=== PATIENT | male | born 1940 | race Caucasian/White ===

== ENCOUNTER → 2016-07-02 | Outpatient (CLI) | payer MEDICARE, OTHER ==
[2016-07-02 13:38] LABS: Blood Urea Nitrogen 8 mg/dL (9-20); Non-African American GFR(MDRD) >60 (>60 ml/min/1.73 sqM)
--- NOTE | 2016-07-02 15:17 | CT ---
EXAMINATION TYPE: CT abdomen pelvis w con DATE OF EXAM: 07/02/2016 3:05 PM COMPARISON: NONE HISTORY: change in bowel habits CT DLP: 1328.7 mGycm CONTRAST: CT scan of the abdomen and pelvis is performed with Oral Contrast and with IV Contrast, patient injec cornell with 100 mL of Omnipaque 300. FINDINGS: LUNG BASES-: No visible nodule. No infiltrate. There is cardiomegaly with coronary artery calcificat ions. LIVER/GB: Moderately severe hepatic steatosis noted. No calcified gallstones. No space occupying he patic lesion. Biliary tree is of normal caliber. PANCREAS: No inflammation. No distinct mass. SPLEEN: No splenic enlargement. No lesion seen. ADRENALS: No nodule. No thickening. KIDNEYS/BLADDER: No hydronephrosis. No nephrolithiasis. Parapelvic renal cysts identified bilatera lly as well as exophytic left renal cyst. Urinary bladder grossly unremarkable. BOWEL: Normal appendix. Normal bowel caliber. No inflammation. GENITAL ORGANS: No gross abnormality. LYMPH NODES: No greater than 1cm abdominal or pelvic lymph nodes are appreciated. AORTA: No significant abnormality. OSSEOUS STRUCTURES: No significant abnormality is seen. OTHER: No significant additional abnormality is seen. IMPRESSION: 1. Hepatic steatosis. 2. Parapelvic and renal cortical cysts.
== END | disposition home or self-care (01) ==
LOC: RADCTMAIN 12:46
PROVIDERS: ATTEND Family Medicine
DX: K76.0 Fatty (change of) liver, not elsewhere classified (principal); N28.1 Cyst of kidney, acquired; R10.9 Unspecified abdominal pain; R19.4 Change in bowel habit
CPT/HCPCS: 82565; 84520; 74177; 36415; Q9967; 87045; 87046; 87324; 87328; 87329; 89055

== ENCOUNTER 2016-07-04 11:33 | Day surgery (SDC) | payer MEDICARE, OTHER ==
[2016-07-03 08:47] VITALS: BMI 28.5
[~2016-07-04 11:33] MED LIST: LACTATED RINGERS 1,000 ML IV SCH
[2016-07-04 12:16] VITALS: RESP 16; TEMP 98.6
[2016-07-04] MEDS ORDERED: LIDOCAINE 1% 20 ML VIAL (10MG/ML) FOR IV START INTRADERMA ONE (12:31)
[2016-07-04] MEDS ORDERED: PROPOFOL 10 MG/ML 20 ML VIAL IV ONE (13:00)
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
--- NOTE | 2016-07-04 13:38 | P.OP ---
Date of Procedure: 07/04/16 Preoperative Diagnosis: Epigastric abdominal pain Screening colonoscopy Postoperative Diagnosis: Antral gastritis Hiatal hernia Esophagitis Left colon polyp Sigmoid colon polyp Diverticulosis Procedure(s) Performed: EGD Colonoscopy Anesthesia: MAC Surgeon: Andrzej Gaston Pathology: other (Left colon polyp, sigmoid colon polyp) Condition: stable Disposition: PACU Description of Procedure: The patient's placed on the endoscopy table in the lateral position. He received IV sedation. The gastroscope some placed oropharynx passed into the esophagus and into the stomach. Scope was then placed through the pylorus. The first and second portion of the duodenum appeared normal. The scope was then brought back and the antrum this appeared mildly inflamed. A biopsies performed. The scope was then retroflexed and there was a moderate size hiatal hernia. The GE junction was at 40 cm. The distal esophagus appeared mildly inflamed. A biopsy was performed. Scope was then back into the proximal esophagus this appeared normal. Scope was withdrawn for patient. Next digital rectal exam was performed which revealed no abnormalities. The prostate was symmetrical without nodules. The flexible colonoscope was then placed patient anus passed throughout the entire colon. The ileocecal valve was visualized. The cecum, ascending and transverse colon appeared normal. In the left colon there was a small polyp sees remove his the forcep. Scope summer back and another polyp was seen in the sigmoid colon and this was removed the forcep as well. There was extensive diverticular changes seen in the sigmoid colon. Scope summer back the rectum and this appeared normal. Scope was withdrawn for patient.
[2016-07-04 13:51] VITALS: BP 136/81; PULSE 71
== END 2016-07-04 14:10 | disposition home or self-care (01) ==
LOC: ORWHC2ENDO 11:33
PROVIDERS: ATTEND Surgery
DX: Z12.11 Encounter for screening for malignant neoplasm of colon (principal); K29.50 Unspecified chronic gastritis without bleeding; K44.9 Diaphragmatic hernia without obstruction or gangrene; K21.0 Gastro-esophageal reflux disease with esophagitis; D12.4 Benign neoplasm of descending colon; D12.5 Benign neoplasm of sigmoid colon; K57.30 Diverticulosis of large intestine without perforation or abscess without bleeding; R19.4 Change in bowel habit; E78.5 Hyperlipidemia, unspecified; I10 Essential (primary) hypertension; I25.10 Atherosclerotic heart disease of native coronary artery without angina pectoris; E07.9 Disorder of thyroid, unspecified; F32.9 Major depressive disorder, single episode, unspecified; I25.2 Old myocardial infarction; Z95.1 Presence of aortocoronary bypass graft; Z79.02 Long term (current) use of antithrombotics/antiplatelets; Z79.899 Other long term (current) drug therapy; Z88.1 Allergy status to other antibiotic agents; Z88.5 Allergy status to narcotic agent; Z88.8 Allergy status to other drugs, medicaments and biological substances; Z87.891 Personal history of nicotine dependence
CPT/HCPCS: 88305; 88342; 43239; J2704; G0121; 44389

== ENCOUNTER 2017-10-06 06:22 | Day surgery (SDC) | payer MEDICARE, OTHER ==
[2017-09-30 15:51] VITALS: BMI 28.3
[2017-10-06 07:03] VITALS: TEMP 98.5
[2017-10-06 07:07] LABS: Glucose,Whole Blood 114 mg/dL (75-99)
[2017-10-06] MEDS: LACTATED RINGERS 1,000 ML IV SCH ×2 (07:07→07:44)
[2017-10-06] MEDS ORDERED: PROPOFOL 10 MG/ML 20 ML VIAL IV ONE (07:45)
[2017-10-06] MEDS ORDERED: LIDOCAINE 1% INJ 10MG/ML (20 ML MDV) ONE (07:45)
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
--- NOTE | 2017-10-06 08:10 | P.OP ---
Date of Procedure: 10/06/17 Preoperative Diagnosis: History of colon polyps Postoperative Diagnosis: Left colon polyp Procedure(s) Performed: Colonoscopy Anesthesia: MAC Surgeon: Andrzej Gaston Pathology: other (Left colon polyp) Condition: stable Disposition: PACU Description of Procedure: The patient's placed on the endoscopy table in the lateral position. He received IV sedation. Digital rectal exam was performed which revealed internal hemorrhoids. The prostate was symmetrical without nodules. The flexible colonoscope was then placed patient anus and passed throughout the entire colon. The ileocecal valve was visualized. The cecum, ascending and transverse colon appeared normal. In the descending colon was a few scattered diverticuli. In the left colon at 45 cm saw there was a small polyp seen this removed with a forcep. Scope was brought back into the sigmoid colon and a few diverticula were seen. Scope was brought back the rectum and this appeared normal. Scope was withdrawn from patient.
[2017-10-06] MEDS ORDERED: IV FLUID CONTINUATION 1,000 ML IV ONE (08:11)
[2017-10-06 08:13] VITALS: RESP 18
[2017-10-06 08:25] VITALS: BP 168/78; PULSE 74
--- NOTE | 2017-10-08 08:19 | CDI ---
Date: 10/08/17 CDS/Technology Sales Consultant Name: Arin downing Phone: If any questions, call Cherie Johnson Surg Tech at [phone] Patient Name: Anoop Mart Admit Date: 10/06/17 Discharge Date: 10/06/17 ATTENTION: The [facility] Coding Staff appreciate your assistance in clarifying documentation. Please respond to the clarification below the line at the bottom and electronically sign. The [facility] Coding staff will review the response and follow-up if needed. Please note: Queries are made part of the Legal Health Record. If you have any questions, please contact the Surg Tech. Dear Dr. Gaston, Please provide clarification on the method used to remove the left colon polyp. Please clarify if the method was hot or cold forceps. Thank you for your kind consideration ___ The polyp was removed with the cold forcep MTDD
== END 2017-10-06 08:51 | disposition home or self-care (01) ==
LOC: ORWHC2ENDO 06:22
PROVIDERS: ATTEND Surgery
DX: Z12.11 Encounter for screening for malignant neoplasm of colon (principal); K63.5 Polyp of colon; K57.30 Diverticulosis of large intestine without perforation or abscess without bleeding; Z86.010 Personal history of colon polyps; K64.8 Other hemorrhoids; K21.9 Gastro-esophageal reflux disease without esophagitis; E78.5 Hyperlipidemia, unspecified; I10 Essential (primary) hypertension; I25.2 Old myocardial infarction; E07.9 Disorder of thyroid, unspecified; Z95.1 Presence of aortocoronary bypass graft; M10.9 Gout, unspecified; Z89.021 Acquired absence of right finger(s); Z87.891 Personal history of nicotine dependence; Z79.02 Long term (current) use of antithrombotics/antiplatelets; Z79.82 Long term (current) use of aspirin; Z79.890 Hormone replacement therapy; Z79.899 Other long term (current) drug therapy; Z88.1 Allergy status to other antibiotic agents; Z88.5 Allergy status to narcotic agent; Z88.8 Allergy status to other drugs, medicaments and biological substances
CPT/HCPCS: 88305; 45380; J2001; J2704; 44389

== ENCOUNTER → 2018-01-09 | Outpatient (CLI) | payer MEDICARE, OTHER ==
--- NOTE | 2018-01-10 12:00 | MR ---
EXAMINATION TYPE: MR lumbar spine wo con DATE OF EXAM: 01/09/2018 1:57 PM COMPARISON: NONE HISTORY: Deg disc disease / Radiculopathy Multiplanar, MultiSpin echo imaging of the lumbar spine was performed. L1-L2: Normal disc appearance without desiccation. No herniation, protrusion or disc bulging. No ca nal stenosis is present. Foramina are patent bilaterally. L2-L3: Moderate degenerative disc space narrowing. Posterior disc bulge. No evidence of herniation pr otrusion or central stenosis. Lamina are patent bilaterally. L3-L4: Moderate degenerative disc space narrowing. Posterior disc bulge. No evidence of herniation pr otrusion or central stenosis. Lamina are patent bilaterally. L4-L5: Moderate disc desiccation. Posterocentral disc protrusion effaces the ventral thecal sac. Bila teral lateral recess stenosis right greater than left. No significant foraminal encroachment. No cent ral stenosis. L5-S1: Moderate degenerative disc space narrowing. Posterior disc bulge. No evidence of herniation pr otrusion or central stenosis. Lamina are patent bilaterally. Lumbar segments are intact. Ventral spondylosis. No paraspinal masses are identified. Conus medulla ris has a normal appearance. IMPRESSION: 1. Bilevel degenerative disc disease. 2. Posterocentral disc protrusion L4-5 with bilateral lateral recess stenosis.
== END | disposition home or self-care (01) ==
LOC: RADMRIMAIN 13:07
PROVIDERS: ATTEND Family Medicine
DX: M48.061 Spinal stenosis, lumbar region without neurogenic claudication (principal); M51.16 Intervertebral disc disorders with radiculopathy, lumbar region
CPT/HCPCS: 72148

== ENCOUNTER → 2018-06-28 | Outpatient (CLI) | payer MEDICARE, OTHER ==
--- NOTE | 2018-06-28 13:57 | CT ---
EXAMINATION TYPE: CT abdomen pelvis wo con DATE OF EXAM: 06/28/2018 COMPARISON: 07/02/2016 HISTORY: Abdominal pain, history of diverticulitis. CT DLP: 593.8 mGycm Automated exposure control for dose reduction was used. TECHNIQUE: Helical acquisition of images was performed from the lung bases through the pelvis. FINDINGS: LUNG BASES: Subsegmental changes at the lung bases most typical of atelectasis. Degree of underlying COPD suspected. There appears to be cardiomegaly with pericardial lipomatosis. Surgical clip noted in the mediastinum and there are sternotomy wires. Correlate for gynecomastia. LIVER/GB: Liver reduced in attenuation correlate for hepatic steatosis. There does appear to be a tin y calcification within the left lobe the liver measuring 1 mm an additional right lobe 2 mm calcifica tion compatible with granuloma. PANCREAS: No significant abnormality is seen. SPLEEN: No significant abnormality is seen. ADRENALS: No significant abnormality is seen. KIDNEYS: No hydronephrosis. Hypodense lesion involving the midpole left kidney is stable likely relat ed to simple cyst. Additional parapelvic renal cysts are suspected. No hydronephrosis or nephrolithia sis. ADENOPATHY: None visualized. OSSEOUS STRUCTURES: Hypertrophic and degenerative change of the vertebral column. Atherosclerotic ch latisha of the aorta. There stable benign-appearing cystic lesions involving the acetabulum. There appea rs to be a less well-defined area of abnormal density involving the left femoral neck. This does not appear to be cystic in nature. Possibly related to bone infarct. Chondroid lesion or other bone neopl asm not excluded recommend bone scan. BOWEL: No significant abnormality is seen. OTHER: No evidence of aortic aneurysm. Atherosclerotic changes are seen. No free air or free fluid. IMPRESSION: 1. Hepatic steatosis. 2. Pericardial lipomatosis. 3. Stable appearing renal lesions which are nonspecific by noncontrast technique but likely in the ba sis of simple cysts. 3. Diverticulosis but no CT evidence of diverticulitis 4. The bladder is decompressed and limited in assessment. 5. Intraosseous lesion of the left femoral neck does not appear to be compatible with a simple bone c yst. Recommend bone scan or MRI for further evaluation. Favor a bone infarct.
== END | disposition home or self-care (01) ==
LOC: RADCTMAIN 12:48
PROVIDERS: ATTEND Family Medicine
DX: K57.30 Diverticulosis of large intestine without perforation or abscess without bleeding (principal); K76.0 Fatty (change of) liver, not elsewhere classified; N32.89 Other specified disorders of bladder; N28.9 Disorder of kidney and ureter, unspecified; Z87.19 Personal history of other diseases of the digestive system
CPT/HCPCS: 74176

== ENCOUNTER → 2018-07-06 | Outpatient (CLI) | payer MEDICARE, OTHER ==
--- NOTE | 2018-07-06 17:23 | MR ---
EXAMINATION TYPE: MR hip LT wo con DATE OF EXAM: 07/06/2018 COMPARISON: None HISTORY: 78-year-old male with left hip pain x 2 years Technique: Multiplanar, multisequence images of the left hip were acquired without IV contrast. FINDINGS: 3.7 cm serpiginous area of mixed-signal intensity within the left femoral neck. No marrow edema. Degenerative change in both hips. There is a 2.3 cm subchondral geode along the anterior acetabular r mohamud on the right. Irregular cartilage loss along the weightbearing aspect of both hips with lateral m arginal spurring and small bilateral joint effusions. Degenerative changes are more extensive at the right hip with subchondral marrow signal changes on both sides of the joint. The rectus femoris and hamstrings origins are intact. 2.4 cm long by 1.1 cm wide distention of the left iliopsoas bursa. Trace fluid tracking along the rig ht iliopsoas bursa. There is a partial tear at the insertion of both the lateral gluteus medius and gluteus minimus tendo ns at the left greater trochanter. Additional intrasubstance tear at the insertion of the left associate professor of psychology osuperior gluteus medius. Sacrum and SI joints appear intact as does the pubic symphysis. No suspicious bone marrow replacement. Normal course, caliber, and signal intensity of the sciatic nerves. IMPRESSION: 1. Moderate to advanced right hip OA and at least moderate left hip OA. Radiographs may be helpful to better assess. Associated small joint effusions. 2. 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 No acute bony edema. 3. Tendinosis and partial tears of the left gluteal insertions onto the greater trochanter. No retrac cornell tear. 4. Mild, 2.4 x 1.1 cm distention of the left iliopsoas bursa.
== END ==
LOC: RADMRIMAIN 12:56
PROVIDERS: ATTEND Family Medicine
DX: M16.0 Bilateral primary osteoarthritis of hip (principal); M76.02 Gluteal tendinitis, left hip; M25.852 Other specified joint disorders, left hip

== ENCOUNTER → 2018-11-19 | Outpatient (CLI) | payer MEDICARE, OTHER | END | disposition home or self-care (01) | LOC: LABPAT 12:47 | PROVIDERS: ATTEND Orthopaedic Surgery | DX: Z01.812 Encounter for preprocedural laboratory examination (principal); M16.11 Unilateral primary osteoarthritis, right hip | CPT/HCPCS: 86850; 86900; 86901; 87070 ==

== ENCOUNTER → 2018-11-19 | Outpatient (CLI) | payer MEDICARE, OTHER ==
[2018-11-19 13:44] LABS: Partial Thromboplastin Time 28.9 sec (22.0-30.0); Prothrombin Time 10.4 sec (9.0-12.0)
[2018-11-19 15:45] LABS: HGB 16.3 gm/dL (13.0-17.5); MCH 32.7 pg (25.0-35.0); MCHC 34.7 g/dL (31.0-37.0); MCV 94.3 fL (80.0-100.0); Mean Platelet Volume 7.5; Platelet Count 208 k/uL (150-450); RBC 4.98 m/uL (4.30-5.90); RDW 13.9 % (11.5-15.5); WBC 10.2 k/uL (3.8-10.6)
[2018-11-19 18:45] LABS: African American GFR (CKD) 83.2 (60.0-200.0); Albumin 4.8 g/dL (3.80-4.90); Albumin/Globulin Ratio 2.4 (1.60-3.17); Anion Gap 12.3 mmol/L (4.00-12.00); Calcium 9.7 mg/dL (8.7-10.3); Carbon Dioxide 28.7 mmol/L (21.6-31.8); Potassium 3.3 mmol/L (3.5-5.5); Total Bilirubin 1.5 mg/dL (0.3-1.2); Total Protein 6.8 g/dL (6.2-8.2)
== END | disposition home or self-care (01) ==
LOC: LABWHC1 12:51
PROVIDERS: ATTEND Physician Assistant Medical
DX: Z01.812 Encounter for preprocedural laboratory examination (principal)
CPT/HCPCS: 36415; 80053; 85027; 85610; 85730

== ENCOUNTER 2018-11-29 08:46 | Inpatient (IN) | payer MEDICARE, OTHER ==
[2018-11-22 16:13] VITALS: BMI 27.4
--- NOTE | 2018-11-28 09:18 | HP ---
HISTORY AND PHYSICAL REASON FOR ADMISSION: Surgery scheduled for 11/29/2018 HISTORY OF PRESENT ILLNESS: Anoop Mart is a 78-year-old patient seen with symptomatic right hip osteoarthritis. After treatment options were discussed, the patient elected to proceed with right total hip arthroplasty via direct anterior approach. Consent regarding the procedure was obtained. Medical clearance was provided by Dr. Riojas. PAST MEDICAL HISTORY: Hypertension, hyperlipidemia, hypothyroidism. PAST SURGICAL HISTORY: Foot surgery, shoulder surgery. MEDICATIONS: Allopurinol, amlodipine, Crestor, levothyroxine, metoprolol. ALLERGIES: MORPHINE SULFATE, ZITHROMAX, LISINOPRIL. SOCIAL HISTORY: Denies tobacco use. PHYSICAL EXAMINATION: Evaluation of the right hip: There is very limited range of motion with severe pain, diffuse tenderness. Positive hip impingement sign. Straight leg raise is negative. His distal neurovascular exam is intact. RADIOGRAPHS: Radiographs of the right hip reveals severe osteoarthritic changes. IMPRESSION: 1. Right hip osteoarthritis. 2. Hypertension. 3. Hyperlipidemia. 4. Hypothyroidism. PLAN: Direct anterior right total hip arthroplasty. Surgery 11/29/2018. MMODL / IJN: [id number] /
[~2018-11-29 08:46] MED LIST changes: +ACETAMINOPHEN TAB 500 MG TAB PO ONE; -LACTATED RINGERS 1,000 ML IV SCH; +LIDOCAINE 1% 20 ML VIAL (10MG/ML) FOR IV START INTRADERMA PRN; +MELOXICAM 7.5 MG TAB PO ONE; +ONDANSETRON 4 MG/2 ML VIAL IVP ONE; +ROPIVACAINE 246.25 MG, EPINEPHrine 0.5 MG, KETOROLAC 30 MG, cloNIDine HCL/PF 80 MCG, WA... MISCELLANE ONE; +TRANEXAMIC ACID 1,000 MG in SODIUM CHLORIDE 0.9% 100 ML IVPB ONE; +fentaNYL (PF) 50 MCG/ML 2 ML AMP IV PRN
[2018-11-29] MEDS: LACTATED RINGERS 1,000 ML IV SCH (09:50)
[2018-11-29 09:56] LABS: Calcium 9.5 mg/dL (8.4-10.2); Potassium 3.1 mmol/L (3.5-5.1)
[2018-11-29] MEDS ORDERED: DEXAMETHASONE SOD PHOS (MDV) 100 MG/10 ML VIAL IVP ONE (10:00)
[2018-11-29] MEDS ORDERED: TRANEXAMIC ACID 1,000 MG/10 ML VIAL ONE (10:35)
[2018-11-29] MEDS ORDERED: fentaNYL (PF) 50 MCG/ML 2 ML AMP ONE (10:35)
[2018-11-29] MEDS ORDERED: PROPOFOL 10 MG/ML 20 ML VIAL IV ONE (10:35)
[2018-11-29] MEDS ORDERED: SODIUM CHLORIDE 0.9% 100 ML BAG ONE (10:35)
[2018-11-29] MEDS ORDERED: MIDAZOLAM 2 MG/2 ML VIAL ONE (10:35)
[2018-11-29] MEDS ORDERED: PHENYLEPHRINE-0.9% NACL SYG 1 MG/10 ML SYRINGE ONE (10:35)
[2018-11-29] MEDS ORDERED: ceFAZolin 3,000 MG in SODIUM CHLORIDE 0.9% IRRIGATIO 3,000 ML IRRIGATION ONE (11:10)
--- NOTE | 2018-11-29 12:28 | P.OP ---
Date of Procedure: 11/29/18 Preoperative Diagnosis: Right hip osteoarthritis Postoperative Diagnosis: Right hip osteoarthritis Procedure(s) Performed: Direct anterior right total hip arthroplasty Implants: 1. Glory GARCIA chose size 14 high offset press-fit femoral stem 2. Glory pinnacle 58 mm multiple hole press-fit acetabular shell 3. Glory [place] +4 neutral 36 mm ID 58 mm OD polyethylene acetabular liner 4. Biolox delta ceramic femoral head +12 36 mm Anesthesia: local, spinal Surgeon: Mike Alex [employer] Printer #1: Malik Rivas Estimated Blood Loss (ml): 200 Pathology: other (Femoral head) Condition: stable Disposition: PACU Indications for Procedure: 78-year-old patient seen with symptomatic right hip osteoarthritis. After treatment options were discussed, he elected to proceed with total hip arthroplasty. Operative Findings: See description of procedure Description of Procedure: The patient was taken to the operative suite. Patient underwent a spinal anesthetic by the department of anesthesia. Patient was then transferred to the [place] table. Patient was given preoperative IV antibiotics and TXA. Both lower extremities were placed in standard leg spars. The hip was then prepped and draped in the normal sterile orthopedic fashion. A standard anterior incision was made beginning 3 cm lateral and 1 cm distal to the ASIS extending 10 cm. Dissection was then carried down through the subcutaneous soft tissues down to the fascia overlying the tensor fascia hira. An incision was now made through the fascia. Careful dissection was taken down exposing the tensor fascia hira muscle. A Cobra retractor was now placed along the medial femoral neck and a second one along the lateral femoral neck. The venous circumflex vessels were now identified, cauterized and clipped. We identified the anterior hip capsule. An incision was made through the hip capsule along the lateral border. I performed a partial anterior capsulectomy. Retractors were now placed around the femoral neck itself. A femoral neck cut was now made with a sagittal saw. It was completed with an osteotome at the lateral neck area. The femoral head was now removed without difficulty. The extremity was now rotated to 45 of external rotation. It was locked in position. Residual labrum was now debrided out. Serial reaming was performed of the acetabulum while Carson VARNER ass isted holding an anterior retractor for exposure. Once we reached the appropriate size and a trial was position and fit nicely. The appropriate size was now chosen opened and made available. It was introduced into the acetabulum without difficulty. The C-arm/fluoroscopy was now brought into the operative field. We made sure we had a true AP pelvic view. We now under direct C- arm/fluoroscopy introduced into the acetabular component with appropriate version and inclination. I held the cup in appropriate position well Carson VARNER used a mallet to seat the acetabular component. I noted the component now to be well seated and stable. Acetabular cup introduce her was removed. The C-arm was pulled back. An appropriate liner was introduced and clicked into position. It was felt to be stable. At this point retractors were removed. The extremity was now placed into 120 external rotation with no traction. The leg was now dropped to the ground and adducted. Appropriate retractors were now positioned along the proximal femur. We also placed our femoral look into position. Additional capsular releasing was performed to gain access to the proximal femur. We now used a box osteotome. A canal finder was now utilized. Serial broaching was now performed with the assistance of Carson VARNER tapping the broaches down with a mallet while held the broach in appropriate rotation and position. This was done until we reached the appropriate size with good overall rotational stability. Appropriate calcar planing was performed. A trial head/neck was placed into position. The hip was now reduced. The C- arm/fluoroscopy was brought back into the operative field. A spot film was obtained of the nonoperative hip. A spot film was obtained of the trial components. Overlays were performed, we noted good overall alignment and positioning for determining leg length. The C-arm/fluoroscopy was pulled back. Retractors were repositioned and the hip was dislocated. The leg was again taken down to the ground and adducted. Appropriate retractors were repositioned as well as the femoral hook. All trial components were removed. The femoral implant was opened along with the femoral head. The femoral implant was introduced on the appropriate handle into our pre-broached area. I held the component position well Carson VARNER used a mallet to seat the femoral compo nent. The femoral component was now noted to be well seated and stable.. The femoral head was introduced with good positioning and fixation noted. Retractors were now removed. The hip was now reduced. There appeared be good positioning of the hip confirmed on intraoperative fluoroscopy. Spot films were obtained to document this. A second gram of TXA was given. The deep and superficial soft tissues were infiltrated with local analgesic. Bipolar cautery had been utilized intermittently through the procedure for hemostasis. The wound was irrigated copiously with pulse lavage mechanical irrigation. The fascia was repaired with Vicryl suture. The subcutaneous soft tissues were repaired in layers with Vicryl suture. The skin was approximated with pernio/Dermabond. Sterile dressings were applied. Patient was then awakened, transferred to a bed and taken to recovery in stable condition. Carson VARNER assisted with the complex procedure.
[2018-11-29] MEDS ORDERED: HYDROmorphone 0.5 MG/0.5 ML SYRINGE IVP PRN ×2 (12:29)
[2018-11-29] MEDS ORDERED: NALOXONE 0.4 MG/ML 1 ML VIAL IV PRN (12:29)
[2018-11-29] MEDS ORDERED: ONDANSETRON 4 MG/2 ML VIAL IVP PRN (12:29)
[2018-11-29] MEDS ORDERED: HYDROcodone/APAP 7.5-325MG 1 EACH TAB PO PRN (12:29)
--- NOTE | 2018-11-29 12:59 | FL ---
EXAMINATION TYPE: FL guidance operating room DATE OF EXAM: 11/29/2018 CLINICAL HISTORY: Fluoroscopic documentation during a right hip arthroplasty TECHNIQUE: Fluoroscopy. COMPARISON: None. FINDINGS: Fluoroscopic guidance was provided during procedure performed by Dr. Alex. A total o f 29 seconds of fluoroscopic time was utilized during the procedure and 1 spot image was acquired dur ing a right hip arthroplasty. IMPRESSION: As Above.
[2018-11-29] MEDS: SODIUM CHLORIDE 0.9% 1,000 ML IV SCH (14:35)
[2018-11-29] MEDS: HYDROcodone/APAP 7.5-325MG 1 EACH TAB PO PRN ×2 (14:52→21:28)
[2018-11-29] MEDS: NICOTINE 21MG/24HR PATCH TRANSDERM SCH (14:57)
[2018-11-29] MEDS: HYDROmorphone 0.5 MG/0.5 ML SYRINGE IVP PRN ×2 (15:07→21:29)
[2018-11-29] MEDS ORDERED: SENNOSIDES-DOCUSATE SODIUM 1 EACH TAB PO SCH (21:00)
[2018-11-29] MEDS: POTASSIUM CHLORIDE ER 10 MEQ TAB.ER.PRT PO SCH (21:20)
[2018-11-30] MEDS: SODIUM CHLORIDE 0.9% 1,000 ML IV SCH (00:55)
[2018-11-30] MEDS: LACTATED RINGERS 1,000 ML IV SCH (05:44)
[2018-11-30] MEDS: HYDROcodone/APAP 7.5-325MG 1 EACH TAB PO PRN ×2 (05:48→12:20)
[2018-11-30] MEDS ORDERED: LEVOTHYROXINE 50 MCG TAB PO SCH (06:30)
[2018-11-30 06:43] LABS: Basophils # (A) 0.1 k/uL (0-0.2); Basophils % (A) 1 %; Eosinophils % (A) 0 %; HCT 33.6 % (39.0-53.0); Lymphocytes % (A) 7 %; MCH 33.4 pg (25.0-35.0); MCHC 36.8 g/dL (31.0-37.0); MCV 90.6 fL (80.0-100.0); Mean Platelet Volume 6.8; Monocytes # (A) 0.8 k/uL (0-1.0); Monocytes % (A) 5 %; Neutrophils # (A) 12.8 k/uL (1.3-7.7); Neutrophils % (A) 86 %; Platelet Count 154 k/uL (150-450); RDW 13.5 % (11.5-15.5); WBC 14.8 k/uL (3.8-10.6)
[2018-11-30 06:47] LABS: HGB 12.4 gm/dL (13.0-17.5)
[2018-11-30 08:04] VITALS: BP 160/60; PULSE 76; RESP 16; TEMP 98
[2018-11-30 08:55] LABS: ALT 42 U/L (21-72); AST 64 U/L (17-59); African American GFR (CKD) >90 (>60 ml/min/1.73 sqM); Albumin 3.6 g/dL (3.5-5.0); Alkaline Phosphatase 86 U/L (38-126); Anion Gap 10 mmol/L; Blood Urea Nitrogen 12 mg/dL (9-20); Calcium 8.9 mg/dL (8.4-10.2); Carbon Dioxide 27 mmol/L (22-30); Chloride 97 mmol/L (98-107); Glucose 121 mg/dL (74-99); Potassium 3.2 mmol/L (3.5-5.1); Sodium 134 mmol/L (137-145); Total Bilirubin 0.9 mg/dL (0.2-1.3)
[2018-11-30] MEDS ORDERED: ALLOPURINOL 100 MG TAB PO SCH (09:00)
[2018-11-30] MEDS ORDERED: CITALOPRAM HYDROBROMIDE 10 MG TAB PO SCH (09:00)
[2018-11-30] MEDS ORDERED: MELOXICAM 7.5 MG TAB PO SCH (09:00)
[2018-11-30] MEDS ORDERED: ENOXAPARIN 40 MG/0.4 ML SYRINGE SQ SCH (09:00)
[2018-11-30] MEDS ORDERED: CLOPIDOGREL 75 MG TAB PO SCH (09:00)
[2018-11-30] MEDS ORDERED: METOPROLOL TARTRATE 25 MG TAB PO SCH (09:00)
[2018-11-30] MEDS ORDERED: amLODIPine 10 MG TAB PO SCH (09:00)
[2018-11-30] MEDS: POTASSIUM CHLORIDE ER 10 MEQ TAB.ER.PRT PO SCH (09:12)
[2018-11-30] MEDS: NICOTINE 21MG/24HR PATCH TRANSDERM SCH (09:12)
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
--- NOTE | 2018-11-30 11:10 | P.PN ---
Subjective Progress Note Date: 11/30/18 Principal diagnosis: Status post direct anterior right total hip arthroplasty Patient evaluated at bedside. His resting comfortably, pain is well-controlled. Denies any chest pain shortness of breath. Has done very well with physical therapy. Objective - Vital Signs Vital signs: Vital Signs Temp 98.0 F 11/30/18 07:35 Pulse 76 11/30/18 07:35 Resp 16 11/30/18 07:35 BP 160/60 11/30/18 07:35 Pulse Ox 97 11/30/18 07:35 Intake & Output 11/29/18 11/30/18 11/30/18 18:59 06:59 18:59 Intake Total 2351 250 350 Output Total 500 75 Balance 1851 175 350 Weight 83.461 kg Intake: IV 751 Intake, IV Titration 400 Amount Lactated Ringers 1,000 ml 400 @ 20 mls/hr IV .Q24H JUAN Rx#:[id number] Oral 1200 250 350 Output: Urine 300 Emesis 75 Estimated Blood Loss 200 Other: Voiding Method Toilet Toilet # Voids 1 1 - Exam Right lower extremity: Incision is clean, dry, and intact. The exofin fusion tape is in good condition. There is minimal soft tissue swelling and ecchymosis surrounding the medial and lateral aspects of the incision. Calf is soft, no tenderness with palpation. Plantar flexion, dorsiflexion, EHL, FHL are intact. Sensory exam to light touch throughout the extremity is intact, dorsal pedis pulses 2+. - Labs CBC & Chem 7: 11/30/18 05:59 11/30/18 05:59 Labs: Abnormal Lab Results - Last 24 Hours (Table) 11/30/18 11/30/18 Range/Units 05:59 05:59 WBC 14.8 H (3.8-10.6) k/uL RBC 3.70 L (4.30-5.90) m/uL Hgb 12.4 L D (13.0-17.5) gm/dL Hct 33.6 L (39.0-53.0) % Neutrophils # 12.8 H (1.3-7.7) k/uL Sodium 134 L (137-145) mmol/L Potassium 3.2 L (3.5-5.1) mmol/L Chloride 97 L (98-107) mmol/L Glucose 121 H (74-99) mg/dL AST 64 H (17-59) U/L Total Protein 6.0 L (6.3-8.2) g/dL Assessment and Plan Plan: Assessment: Postop day #1 status post direct anterior right total hip arthroplasty Plan: Pain control, we'll discharge home on oral medication GI and DVT prophylaxis, resume medication Wound care instructions were discussed Home physical therapy and nursing Medical recommendations Plan for discharge today Time with Patient: Less than 30
--- NOTE | 2018-11-30 11:13 | P.DS ---
Providers Date of admission: 11/29/18 08:46 Expected date of discharge: 11/30/18 Attending physician: Mike Alex Consults: 11/29/18 12:29 Consult Physician Routine Consulting Provider: Noel Riojas Consult Reason/Comments: Medical management Do you want consulting provider notified?: Yes Primary care physician: Danielle Braun Hospital Course: Date of admission: 11/29/2018 Date of discharge: 11/30/2018 Admission diagnosis: Status post direct anterior right total hip arthroplasty Discharge diagnosis: Same Attending physician: Dr. Alex Surgical procedures: Direct anterior right total hip arthroplasty Brief history: Patient is a 78-year-old male with a history of progressive primary right hip osteoarthritis. At this point patient has failed conservative treatment measures and has opted to proceed with a elective right total hip arthroplasty. Hospital course: Details of patient's surgery can be found in operative report. Patient tolerated the procedure well and was subsequently transported to orthopedic floor. Patient's orthopeidc and medical care was provided daily. Patient had daily laboratory tests performed for evaluation of overall blood counts. Patient had daily physical therapy to include strengthening range of motion as well as education with walker ambulation. Patient was treated with Lovenox for their postoperative DVT prophylaxis during their inpatient stay. Patient was noted to have a relatively uneventful postoperative course. Patient reported satisfactory pain control with oral pain medications by postoperative day 0. Patient showed satisfactory progress with physical therapy. Patient moved steadily through the program and had no difficulty meeting the goals by postoperative day 1. Given patient's otherwise satisfactory course and having met physical therapy goals, plan is to discharge patient home on postoperative day 1. Discharge condition/disposition: Patient will be discharged home in stable condition. Discharge medications: Instructions are given on resumption of patient's normal daily medications per primary care recommendation, in addition patient will be prescribed Tina 7.5 mg/325 mg, Colace 100 mg. Discharge instructions: 1. Wound care and infection precautions, keep incision dry and covered while showering, no lotions, creams, moisturizers. No soaking, tubs, pools, hottubs. Do not scrub over the incision. 2. Weight-bear as tolerated with walker / cane until follow-up. 3. Ice and elevate when necessary. Do not exceed 20 minutes per hour with ice pack. 4. Utilize compression sleeve until seen at first follow up appointment. 5. Visiting nursing care. 6. Home physical therapy. 7. Pain meds and anticoagulants per prescription. 8. Pain medication has potential to cause constipation. Increase oral fluid and fiber intake. Contact primary care provider if you have not had a bowel movement within 48 hours after discharge 9. No anti-inflammatory medication until discussed at first post operative visit, this including Motrin, Aleve, Mobic, Diclofenac. 10. Follow up in office at 2 weeks postop with Carson Rivas PA-C 11. Follow up with your primary care doctor 7-10 days after discharge. 12. Contact [facility] with any questions, . Procedures: Direct anterior right total hip arthroplasty Patient Condition at Discharge: Good Plan - Discharge Summary Discharge Rx Participant: No New Discharge Prescriptions: New Potassium Chloride 10 meq PO DAILY #30 capsule.er Docusate [Colace] 100 mg PO DAILY #30 capsule HYDROcodone/APAP 7.5-325MG [Tina 7.5] 1 - 2 each PO Q6HR PRN #56 tab PRN Reason: Pain No Action Clopidogrel [Plavix] 75 mg PO DAILY Rosuvastatin Calcium [Crestor] 20 mg PO SUMOWEFR Levothyroxine Sodium [Synthroid] 50 mcg PO DAILY Citalopram Hydrobromide [CeleXA] 10 mg PO DAILY Cholecalciferol [Vitamin D3] 2,000 unit PO DAILY Allopurinol [Zyloprim] 100 mg PO BID Aspirin EC [Ecotrin] 325 mg PO DAILY amLODIPine BESYLATE [Norvasc] 10 mg PO DAILY Metoprolol Tartrate [Lopressor] 25 mg PO DAILY Acetaminophen [Tylenol Arthritis] 650 mg PO DIRECTED PRN PRN Reason: Pain Vitamin B-12 (No Dose) 1 tab PO DAILY Lidocaine 5% Oint [Xylocaine 5% Oint] 1 applic TOPICAL DIRECTED PRN PRN Reason: Pain Blue Emu (Otc) 1 applic TOPICAL DIRECTED PRN PRN Reason: Pain Discharge Medication List Allopurinol [Zyloprim] 100 mg PO BID 07/03/16 [History] Aspirin EC [Ecotrin] 325 mg PO DAILY 07/03/16 [History] Cholecalciferol [Vitamin D3] 2,000 unit PO DAILY 07/03/16 [History] Citalopram Hydrobromide [CeleXA] 10 mg PO DAILY 07/03/16 [History] Clopidogrel [Plavix] 75 mg PO DAILY 07/03/16 [History] Levothyroxine Sodium [Synthroid] 50 mcg PO DAILY 07/03/16 [History] Rosuvastatin Calcium [Crestor] 20 mg PO SUMOWEFR 07/03/16 [History] amLODIPine BESYLATE [Norvasc] 10 mg PO DAILY 07/03/16 [History] Metoprolol Tartrate [Lopressor] 25 mg PO DAILY 07/04/16 [History] Acetaminophen [Tylenol Arthritis] 650 mg PO DIRECTED PRN 11/22/18 [History] Blue Emu (Otc) 1 applic TOPICAL DIRECTED PRN 11/22/18 [History] Lidocaine 5% Oint [Xylocaine 5% Oint] 1 applic TOPICAL DIRECTED PRN 11/22/18 [History] Vitamin B-12 (No Dose) 1 tab PO DAILY 11/22/18 [History] Docusate [Colace] 100 mg PO DAILY #30 capsule 11/30/18 [Rx] HYDROcodone/APAP 7.5-325MG [Tina 7.5] 1 - 2 each PO Q6HR PRN #56 tab 11/30/18 [Rx] Potassium Chloride 10 meq PO DAILY #30 capsule.er 11/30/18 [Rx] Follow up Appointment(s)/Referral(s): Malik Rivas PAC [PHYSICIAN [employer]ANCE [employer]ER] - 12/15/18 2:20 pm Danielle Braun DO [Primary Care Provider] - 12/07/18 1:30 pm (with Marcia) Activity/Diet/Wound Care/Special Instructions: Orthopedic Discharge Instructions: 1. Wound care and infection precautions, keep incision dry and covered while showering, no lotions, creams, moisturizers. No soaking, pools, hot tubs. Do not scrub over incision. 2. Weight-bear as tolerated with walker / cane until follow-up. 3. Ice and elevate when necessary. Do not exceed 20 minutes per hour with ice pack. 4. Utilize compression sleeve until seen at first follow up appointment. 5. Pain meds and anticoagulants per prescription. 6. Pain medication has potential to cause constipation. Increase oral fluid and fiber intake. Contact primary care provider if you have not had a bowel movement within 48 hours after discharge. 7. No anti-inflammatory medication until discussed at first post operative visit, this including Motrin, Aleve, Mobic, Diclofenac. 8. Follow up in office at 2 weeks postop with Carson Rivas PA-C 9. Follow up with your primary care doctor 7-10 days after discharge. 10. Contact [facility] with any questions, . Discharge Disposition: HOME WITH HOME HEALTH SERVICES
== END 2018-11-30 12:58 | disposition home or self-care (01) | DRG 470 ==
LOC: 2ORMAIN 08:46 → 4SSUR 13:03
PROVIDERS: ADMIT Orthopaedic Surgery; ATTEND Orthopaedic Surgery
PROC: 0SR904A Replacement of Right Hip Joint with Ceramic on Polyethylene Synthetic Substitute, Uncemented, Open Approach (ICD-10-PCS; principal; 2018-11-29 10:20)
DX: M16.11 Unilateral primary osteoarthritis, right hip (principal); K75.81 Nonalcoholic steatohepatitis (NASH); E03.9 Hypothyroidism, unspecified; E78.5 Hyperlipidemia, unspecified; F41.9 Anxiety disorder, unspecified; I10 Essential (primary) hypertension; I25.10 Atherosclerotic heart disease of native coronary artery without angina pectoris; I25.2 Old myocardial infarction; K21.9 Gastro-esophageal reflux disease without esophagitis; F32.9 Major depressive disorder, single episode, unspecified; M10.9 Gout, unspecified; E87.6 Hypokalemia; Z79.02 Long term (current) use of antithrombotics/antiplatelets; Z79.82 Long term (current) use of aspirin; Z79.890 Hormone replacement therapy; Z79.899 Other long term (current) drug therapy; Z86.010 Personal history of colon polyps; Z87.891 Personal history of nicotine dependence; Z89.021 Acquired absence of right finger(s); Z95.1 Presence of aortocoronary bypass graft; Z88.1 Allergy status to other antibiotic agents; Z88.5 Allergy status to narcotic agent; Z88.8 Allergy status to other drugs, medicaments and biological substances
CPT/HCPCS: 73501; 80048; 80053; 85025; 86850; 86900; 86901; 87070; 88300; 93005

== ENCOUNTER 2019-10-17 00:44 | Inpatient (IN) | payer MEDICARE, OTHER ==
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
[2019-10-17] MEDS ORDERED: LORazepam 2 MG/ML INJ IV STA (00:53)
[2019-10-17] MEDS ORDERED: METOPROLOL TARTRATE 50 MG TAB PO STA (00:53)
[2019-10-17] MEDS ORDERED: THIAMINE 100 MG/ML 2 ML VIAL IM STA (00:54)
[2019-10-17] MEDS ORDERED: LORazepam 2 MG/ML INJ IV PRN ×2 (00:54)
[2019-10-17] MEDS ORDERED: SODIUM CHLORIDE 0.9% 1,000 ML with MVI, ADULT NO.4 WITH VIT K 10 ML, THIAMINE 100 MG, F... IV ONE ×4 (00:54)
[2019-10-17] MEDS ORDERED: NALOXONE 0.4 MG/ML 1 ML VIAL IV PRN (01:12)
[2019-10-17] MEDS ORDERED: IBUPROFEN 400 MG TAB PO PRN (01:12)
[2019-10-17] MEDS ORDERED: HYDROcodone/APAP 7.5-325MG 1 EACH TAB PO PRN (01:13)
[2019-10-17] MEDS: SODIUM CHLORIDE 0.9% 1,000 ML IV SCH ×3 (01:15→18:05)
[2019-10-17 01:19] LABS: Basophils # (A) 0.1 k/uL (0-0.2); Basophils % (A) 1 %; Eosinophils # (A) 0.5 k/uL (0-0.7); Eosinophils % (A) 5 %; HCT 46.4 % (39.0-53.0); HGB 15.8 gm/dL (13.0-17.5); Lymphocytes # (A) 1.8 k/uL (1.0-4.8); Lymphocytes % (A) 18 %; MCH 30.7 pg (25.0-35.0); MCHC 33.9 g/dL (31.0-37.0); MCV 90.6 fL (80.0-100.0); Mean Platelet Volume 7.4; Monocytes # (A) 0.6 k/uL (0-1.0); Monocytes % (A) 6 %; Neutrophils # (A) 6.9 k/uL (1.3-7.7); Neutrophils % (A) 68 %; Platelet Count 160 k/uL (150-450); RBC 5.12 m/uL (4.30-5.90); RDW 13.4 % (11.5-15.5); WBC 10.1 k/uL (3.8-10.6)
[2019-10-17 01:29] LABS: Partial Thromboplastin Time 31.9 sec (22.0-30.0); Prothrombin Time 10.5 sec (9.0-12.0)
[2019-10-17 01:30] LABS: Albumin 4.2 g/dL (3.5-5.0); Calcium 8.9 mg/dL (8.4-10.2); Potassium 3.2 mmol/L (3.5-5.1); Total Protein 6.6 g/dL (6.3-8.2)
[2019-10-17 01:54] LABS: Appearance,Urine Clear (Clear); Color,Urine Yellow; Specific Gravity,Urine 1.005 (1.001-1.035)
[2019-10-17 01:55] LABS: Protein,Urine 2+ (Negative)
[2019-10-17 01:56] LABS: Bilirubin,Urine Negative (Negative); Blood,Urine Negative (Negative); Glucose,Urine (UA) 1+ (Negative); Ketones,Urine Negative (Negative); Leukocyte Esterase,Urine Negative (Negative); Nitrite,Urine Negative (Negative); Urobilinogen,Urine <2.0 mg/dL (<2.0)
[2019-10-17 01:57] LABS: Hyaline Casts,Urine 1 /lpf (0-2); RBC,Urine 1 /hpf (0-5); WBC,Urine <1 /hpf (0-5)
[2019-10-17] MEDS ORDERED: Potassium Replacement Protocol 1 EACH MISC MISCELLANE PRN (02:05)
[2019-10-17] MEDS: LEVOTHYROXINE 50 MCG TAB PO SCH (04:32)
[2019-10-17] MEDS: POTASSIUM CHLORIDE ER 20 MEQ TAB.ER PO SCH ×2 (04:32→05:18)
[2019-10-17] MEDS: allopurinoL 100 MG TAB PO SCH ×2 (09:02→20:30)
[2019-10-17] MEDS: amLODIPine 5 MG TAB PO SCH (09:03)
[2019-10-17] MEDS: ASPIRIN 325 MG TAB PO SCH (09:03)
[2019-10-17] MEDS: ATORVASTATIN 40 MG TAB PO SCH (09:03)
[2019-10-17] MEDS: DOCUSATE 100 MG CAP PO SCH (09:03)
[2019-10-17] MEDS: CITALOPRAM HYDROBROMIDE 20 MG TAB PO SCH (09:03)
[2019-10-17] MEDS: METOPROLOL TARTRATE 50 MG TAB PO SCH (09:03)
[2019-10-17] MEDS: POTASSIUM CHLORIDE ER 10 MEQ TAB.ER.PRT PO SCH (09:04)
[2019-10-17] MEDS: CLOPIDOGREL 75 MG TAB PO SCH (09:04)
[2019-10-17] MEDS: THIAMINE 100 MG TAB PO SCH (18:05)
[2019-10-17] MEDS: ACETAMINOPHEN TAB 325 MG TAB PO PRN (20:21)
[2019-10-17] MEDS: LORazepam 2 MG/ML INJ IV PRN (20:21)
[2019-10-17] MEDS ORDERED: lisinopriL 20 MG TAB PO STA (23:24)
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
[2019-10-18] MEDS: cloNIDine HCL 0.1 MG TAB PO SCH ×2 (00:01→09:50)
[2019-10-18] MEDS: LORazepam 2 MG/ML INJ IV PRN (01:19)
[2019-10-18] MEDS: SODIUM CHLORIDE 0.9% 1,000 ML IV SCH ×3 (01:20→21:33)
[2019-10-18] MEDS: THIAMINE 100 MG TAB PO SCH ×2 (06:15→16:31)
[2019-10-18] MEDS: LEVOTHYROXINE 50 MCG TAB PO SCH (06:15)
[2019-10-18] MEDS ORDERED: diphenhydrAMINE 50 MG/ML 1 ML VIAL IVP STA (09:13)
[2019-10-18] MEDS: CLOPIDOGREL 75 MG TAB PO SCH (09:48)
[2019-10-18] MEDS: amLODIPine 5 MG TAB PO SCH (09:49)
[2019-10-18] MEDS: CITALOPRAM HYDROBROMIDE 20 MG TAB PO SCH (09:49)
[2019-10-18] MEDS: allopurinoL 100 MG TAB PO SCH ×2 (09:50→21:18)
[2019-10-18] MEDS: DOCUSATE 100 MG CAP PO SCH (09:50)
[2019-10-18] MEDS: POTASSIUM CHLORIDE ER 10 MEQ TAB.ER.PRT PO SCH (09:50)
[2019-10-18] MEDS: METOPROLOL TARTRATE 50 MG TAB PO SCH (09:50)
[2019-10-18] MEDS: ATORVASTATIN 40 MG TAB PO SCH (09:50)
[2019-10-18] MEDS: ASPIRIN 325 MG TAB PO SCH (09:51)
[2019-10-18] MEDS: LOSARTAN 50 MG TAB PO SCH (09:51)
[2019-10-18 11:56] LABS: Calcium 9.1 mg/dL (8.4-10.2); Potassium 3.5 mmol/L (3.5-5.1)
[2019-10-18] MEDS ORDERED: POTASSIUM CHLORIDE ER 20 MEQ TAB.ER PO STA (12:07)
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
--- NOTE | 2019-10-18 15:12 | P.PN ---
Subjective Progress Note Date: 10/18/19 Anoop Mart is a 79 yo M with PMH of HTN, HLD, hx [place], alcohol abuse who presented to the ED with weakness and fever. He was brought as a transfer from outside hospital where he was initially febrile to 103. He was given fluids and on arrival to [facility] T 98, BP 217/108, WBC 10.8, LFTs laregely normal wth m ildly elevated alk phos. He notes that he had been drinking at least 8 beer per day for weeks and recently decided to quit. He denies any previous history of seizures, states he had felt nauseated and weak. He denies any chest pain, shortness of breath, chills or exposure to COVID. 10/18/2019 maintained on CIWA protocol, no sweating, no shakes. potassium 3.5,magnesium 2.maintained on home meds of Norvasc,metoprolol.uncontrolled blood pressures ranging from 170s to 200s, Losartan initiated.ambulating, tolerating exertion well. Denies chest pain, palpitations or increased shortness of breath.afebrile. Objective - Vital Signs Vital signs: Vital Signs Temp 98.9 F 10/18/19 08:00 Pulse 72 10/18/19 11:05 Resp 16 10/18/19 11:05 BP 185/89 10/18/19 11:05 Pulse Ox 97 10/18/19 11:05 Intake & Output 10/17/19 10/18/19 10/18/19 18:59 06:59 18:59 Intake Total 360 1360 360 Output Total 1950 3475 600 Balance -6730 -8235 -240 Weight 84.3 kg Intake: Intake, IV Titration 520 Amount Sodium Chloride 0.9% 1, 520 000 ml @ 100 mls/hr IV . Q10H7M ONE with Mvi, Adult No.4 with Vit K 10 ml with Thiamine 100 mg with Folic Acid 1 mg Rx#: [id number] Oral 360 840 360 Output: Urine 1950 3475 600 Other: Voiding Method Urinal Urinal # Voids 900 1 # Bowel Movements 1 0 - Exam General: Sitting up at side of bed, NAD. Vitals reviewed Eyes: PERRL, EOMI, conjunctiva normal HENT: normocephalic, mucus membranes moist Neck: supple, no JVD Lungs: normal respiratory effort, no wheezes or rales CV: Regular rate and rhythm, no murmur. Peripheral pulses 2+ Abdomen: soft, nondistended, nontender, positive bowel sounds Skin: warm and dry. Neuro: A&Ox3, normal mood and affect - Labs CBC & Chem 7: 10/17/19 01:11 10/18/19 11:24 Labs: Abnormal Lab Results - Last 24 Hours (Table) 10/18/19 Range/Units 11:24 Sodium 136 L (137-145) mmol/L BUN 8 L (9-20) mg/dL Glucose 106 H (74-99) mg/dL Microbiology - Last 24 Hours (Table) 10/17/19 01:11 Blood Culture - Preliminary Blood No Growth after 24 hours Assessment and Plan Assessment: (1) Hypertensive urgency secondary to EtOH withdrawal Current Visit: Yes Status: Acute Code(s): I16.0 - HYPERTENSIVE URGENCY SNOMED Code(s): 590220203 (2) Alcohol withdrawal Current Visit: Yes Status: Acute Code(s): F10.239 - ALCOHOL DEPENDENCE WITH WITHDRAWAL, UNSPECIFIED SNOMED Code(s): 390264876 (3) Hypertension Current Visit: Yes Status: Acute Code(s): I10 - ESSENTIAL (PRIMARY) HYPERTENSION SNOMED Code(s): 60047591 (4) Coronary artery disease Current Visit: No Status: Acute Code(s): I25.10 - ATHSCL HEART DISEASE OF [place] CORONARY ARTERY W/O ANG PCTRS SNOMED Code(s): 69031951 (5) Hypothyroid Current Visit: No Status: Acute Code(s): E03.9 - HYPOTHYROIDISM, UNSPECIFIED SNOMED Code(s): 14391785 (6) BALES (nonalcoholic steatohepatitis) Current Visit: No Status: Acute Code(s): K75.81 - NONALCOHOLIC STEATOHEPATITIS (BALES) SNOMED Code(s): 864665305 Plan: Continue on current medication regime ,monitoring and symptomatic treatmen t. Cardiology consulted regarding uncontrolled hypertension. Echo ordered.PT- significant improvement completed 3 laps around the unit, tolerating exertion well. Maintain CIWA protocol. Discharge planning in progress for tomorrow. The impression and plan of care has been dictated as directed. : I performed a history and examination of this patient, discussed the same with the dictator. I agree with the dictator's note ,documented as a scribe. Any additional findings or plans will be noted.
[2019-10-18] MEDS ORDERED: FUROSEMIDE 20 MG TAB PO SCH (16:00)
[2019-10-18] MEDS: cloNIDine HCL 0.2 MG TAB PO SCH ×2 (16:31→21:18)
--- NOTE | 2019-10-18 18:00 | ECHOF ---
Referral Reason:LV fx MEASUREMENTS -------- HEIGHT: 177.8 cm WEIGHT: 83.9 kg BP: 178/85 RVIDd: 2.4 cm (< 3.3) IVSd: 1.3 cm (0.6 - 1.1) LVIDd: 3.7 cm (3.9 - 5.3) LVPWd: 1.7 cm (0.6 - 1.1) IVSs: 1.7 cm LVIDs: 2.7 cm LVPWs: 2.1 cm LAESV Index (A-L): 22.52 ml/m Ao Diam: 3.2 cm (2.0 - 3.7) AV Cusp: 1.8 cm (1.5 - 2.6) LA Diam: 3.4 cm (2.7 - 3.8) MV EXCURSION: 15.965 mm (> 18.000) MV EF SLOPE: 93 mm/s (70 - 150) EPSS: 1.2 cm MV E Jose: 0.74 m/s MV DecT: 179 ms MV A Jose: 0.94 m/s MV E/A Ratio: 0.78 RAP: 15.00 mmHg RVSP: 20.57 mmHg FINDINGS -------- This was a technically good study. The left ventricular size is normal. There is moderate concentric left ventricular hypertrophy. O verall left ventricular systolic function is low-normal with, an EF between 50 - 55 %. The diastoli c filling pattern is normal for the age of the patient 10.18. The right ventricle is normal in size. The left atrial size is normal. Normal LA size by volume 22+/-6 ml/m2. The right atrial size is normal. Aortic valve is trileaflet and is mildly thickened. The mitral valve is normal. There is trace mitral regurgitation. The tricuspid valve appears structurally normal. Trace tricuspid regurgitation present. Right adolph tricular systolic pressure is normal at < 35 mmHg. There is no pulmonic regurgitation present. The aortic root size is normal. The inferior vena cava is mildly dilated. There is a small, generalized pericardial effusion present. CONCLUSIONS -------- 1. The left ventricular size is normal. 2. There is moderate concentric left ventricular hypertrophy. 3. Overall left ventricular systolic function is low-normal with, an EF between 50 - 55 %. 4. The diastolic filling pattern is normal for the age of the patient 10.18 5. Aortic valve is trileaflet and is mildly thickened. 6. There is trace mitral regurgitation. 7. Trace tricuspid regurgitation present. 8. There is a small, generalized pericardial effusion present. MANAGEMENT ASSOCIATE: Sonia Gutierrez RDCS
[2019-10-19] MEDS: LEVOTHYROXINE 50 MCG TAB PO SCH (05:51)
[2019-10-19] MEDS: ACETAMINOPHEN TAB 325 MG TAB PO PRN (05:53)
[2019-10-19 07:23] LABS: Calcium 8.6 mg/dL (8.4-10.2); Potassium 3.5 mmol/L (3.5-5.1)
[2019-10-19] MEDS: METOPROLOL TARTRATE 50 MG TAB PO SCH (07:30)
[2019-10-19] MEDS: LOSARTAN 50 MG TAB PO SCH (07:30)
[2019-10-19] MEDS: DOCUSATE 100 MG CAP PO SCH (07:30)
[2019-10-19] MEDS: amLODIPine 5 MG TAB PO SCH (07:30)
[2019-10-19] MEDS: CLOPIDOGREL 75 MG TAB PO SCH (07:30)
[2019-10-19] MEDS: allopurinoL 100 MG TAB PO SCH (07:30)
[2019-10-19] MEDS: cloNIDine HCL 0.2 MG TAB PO SCH (07:31)
[2019-10-19] MEDS: ASPIRIN 325 MG TAB PO SCH (07:31)
[2019-10-19] MEDS: CITALOPRAM HYDROBROMIDE 20 MG TAB PO SCH (07:31)
[2019-10-19] MEDS: THIAMINE 100 MG TAB PO SCH (07:31)
[2019-10-19] MEDS: POTASSIUM CHLORIDE ER 10 MEQ TAB.ER.PRT PO SCH (07:32)
[2019-10-19] MEDS ORDERED: Potassium Replacement Protocol 1 EACH MISC MISCELLANE PRN (08:21)
--- NOTE | 2019-10-19 09:42 | P.DS ---
Providers Date of admission: 10/17/19 01:15 Expected date of discharge: 10/19/19 Attending physician: Noel Riojas MD Consults: 10/18/19 10:13 Consult Physician Routine Consulting Provider: Woody Fall Consult Reason/Comments: HTN Do you want consulting provider notified?: Yes 10/18/19 17:22 Consult Physician Routine Consulting Provider: Mercy Govea Consult Reason/Comments: left sided weakness; uncontrollable urination; ataxia Do you want consulting provider notified?: Yes Primary care physician: Cristela Searcy Hospital Course: Final Diagnoses: (1) Hypertensive urgency secondary to EtOH withdrawal Current Visit: Yes Status: Acute Code(s): I16.0 - HYPERTENSIVE URGENCY SNOMED Code(s): 821655918 (2) Alcohol withdrawal Current Visit: Yes Status: Acute Code(s): F10.239 - ALCOHOL DEPENDENCE WITH WITHDRAWAL, UNSPECIFIED SNOMED Code(s): 432412209 (3) Hypertension Current Visit: Yes Status: Acute Code(s): I10 - ESSENTIAL (PRIMARY) HYPERTENSION SNOMED Code(s): 71596116 (4) Coronary artery disease Current Visit: No Status: Acute Code(s): I25.10 - ATHSCL HEART DISEASE OF [place] CORONARY ARTERY W/O ANG PCTRS SNOMED Code(s): 99933584 (5) Hypothyroid Current Visit: No Status: Acute Code(s): E03.9 - HYPOTHYROIDISM, UNSPECIFIED SNOMED Code(s): 31463762 (6) BALES (nonalcoholic steatohepatitis) Current Visit: No Status: Acute Code(s): K75.81 - NONALCOHOLIC STEATOHEPATITIS (BALES) SNOMED Code(s): 816865145 Hospital course:Anoop Mart is a 79 yo M with PMH of HTN, HLD, hx [place], alcohol abuse who presented to the ED with weakness and fever. He was brought as a transfer from outside hospital where he was initially febrile to 103. He was given fluids and on arrival to [facility] T 98, BP 217/108, WBC 10.8, LFTs laregely normal wth mildly elevated alk phos. He notes that he had been drinking at least 8 beer per day for weeks and recently decided to quit. He denies any previous history of seizures, states he had felt nauseated and weak. He denies any chest pain, shortness of breath, chills or exposure to COVID. 10/18/2019 maintained on CIWA protocol, no sweating, no shakes. potassium 3.5,magnesium 2.maintained on home meds of Norvasc,metoprolol.uncontrolled blood pressures ranging from 170s to 200s, Losartan initiated.ambulating, tolerating exertion well. Denies chest pain, palpitations or increased shortness of breath.afebrile. Evaluated by cardiology, antihypertensives further adjusted. Echo reported normal LV function, EF 50-55%. New complaint of left-sided weakness of upper extremity, patient reports has been there since Thursday, but improving. Cranial nerves II through XII grossly intact, motor strength of all extremities 100% symmetrical. Neurology consulted. Denies chest pain, palpitations or shortness of breath. Denies lightheadedness, dizziness or focal deficits. Patient will be discharged home in stable condition with guarded prognosis ,pending neurology evaluation, clearance. Physical exam:General: Alert and oriented 3, sitting up in bed, no acute distress Eyes: PERRL, EOMI, conjunctiva normal HENT: normocephalic, tongue midline ,mucus membranes moist Lungs: normal respiratory effort, clear to auscultation CV: Regular rate and rhythm, no murmur. Peripheral pulses 2+ Abdomen: soft, nondistended, nontender, positive bowel sounds Skin: warm and dry. No rashes Neuro: Cranial nerves II through XII grossly intact, upper and lower extremities strength strong & equal ,100% symmetrical. Sensation grossly intact. Mood and affect normal. No focal deficits. The impression and plan of care has been dictated as directed. : I performed a history and examination of this patient, discussed the same with the dictator. I agree with the dictator's note ,documented as a scribe. Any additional findings or plans will be noted. Patient Condition at Discharge: Stable Plan - Discharge Summary Discharge Rx Participant: No New Discharge Prescriptions: New cloNIDine HCL [Catapres] 0.2 mg PO TID #45 tab Docusate [Colace] 100 mg PO DAILY cap Losartan [Cozaar] 50 mg PO DAILY #30 tab Aspirin EC [Ecotrin Low Dose] 81 mg PO DAILY #30 tablet. Thiamine [Vitamin B-1] 100 mg PO DAILY #30 tablet Continue Clopidogrel [Plavix] 75 mg PO DAILY Levothyroxine Sodium [Synthroid] 50 mcg PO DAILY Citalopram Hydrobromide [CeleXA] 20 mg PO DAILY Cholecalciferol [Vitamin D3 (25 Mcg = 1000 Iu)] 2,000 unit PO DAILY allopurinoL [Zyloprim] 100 mg PO BID amLODIPine BESYLATE [Norvasc] 10 mg PO DAILY Famotidine 40 mg PO DAILY Furosemide [Lasix] 20 mg PO BID Potassium Chloride ER [K-Dur 20] 20 meq PO DAILY Metoprolol Succinate [Toprol XL] 25 mg PO HS Rosuvastatin Calcium 20 mg PO SUMOWEFR Vitamin B Complex/Folic Acid [Vitamin B Complex Tablet] 0.4 mg PO HS Discharge Medication List Cholecalciferol [Vitamin D3 (25 Mcg = 1000 Iu)] 2,000 unit PO DAILY 07/03/16 [History] Citalopram Hydrobromide [CeleXA] 20 mg PO DAILY 07/03/16 [History] Clopidogrel [Plavix] 75 mg PO DAILY 07/03/16 [History] Levothyroxine Sodium [Synthroid] 50 mcg PO DAILY 07/03/16 [History] allopurinoL [Zyloprim] 100 mg PO BID 07/03/16 [History] amLODIPine BESYLATE [Norvasc] 10 mg PO DAILY 07/03/16 [History] Famotidine 40 mg PO DAILY 10/17/19 [History] Furosemide [Lasix] 20 mg PO BID 10/17/19 [History] Metoprolol Succinate [Toprol XL] 25 mg PO HS 10/17/19 [History] Potassium Chloride ER [K-Dur 20] 20 meq PO DAILY 10/17/19 [History] Rosuvastatin Calcium 20 mg PO SUMOWEFR 10/17/19 [History] Vitamin B Complex/Folic Acid [Vitamin B Complex Tablet] 0.4 mg PO HS 10/17/19 [History] Aspirin EC [Ecotrin Low Dose] 81 mg PO DAILY #30 tablet. 10/19/19 [Rx] Docusate [Colace] 100 mg PO DAILY cap 10/19/19 [Rx] Losartan [Cozaar] 50 mg PO DAILY #30 tab 10/19/19 [Rx] Thiamine [Vitamin B-1] 100 mg PO DAILY #30 tablet 10/19/19 [Rx] cloNIDine HCL [Catapres] 0.2 mg PO TID #45 tab 10/19/19 [Rx] Follow up Appointment(s)/Referral(s): [facility], [NON-STAFF] - Noel Riojas MD [STAFF PHYSICIAN] - 3 Days () Ambulatory/Diagnostic Orders: Complete Blood Count w/diff [LAB.AMB] Time Frame: 3 Days, Location: None Selected Patient Instructions/Handouts: Abuse of Alcohol (DC), Hypertension (DC) Activity/Diet/Wound Care/Special Instructions: Further tapering of antihypertensives in clinic .No etoh pending neurology evaluation, clearance and DC recommendations
--- NOTE | 2019-10-19 13:53 | US ---
EXAMINATION TYPE: US carotid duplex BILAT DATE OF EXAM: 10/19/2019 COMPARISON: NONE CLINICAL HISTORY: left sided weakness. syncope EXAM MEASUREMENTS: RIGHT: Peak Systolic Velocity (PSV) cm/sec ----- Right CCA: 53.3 ----- Right ICA: 106.4 ----- Right ECA: 112.2 ICA/CCA ratio: 2.0 RIGHT: End Diastole cm/sec ----- Right CCA: 10.3 ----- Right ICA: 12.8 ----- Right ECA: 9.7 LEFT: Peak Systolic Velocity (PSV) cm/sec ----- Left CCA: 81.4 ----- Left ICA: 237.5 ----- Left ECA: 240.0 ICA/CCA ratio: 2.9 LEFT: End Diastole cm/sec ----- Left CCA: 14.1 ----- Left ICA: 30.5 ----- Left ECA: 9.5 VERTEBRALS (direction of flow): Right Vertebral: Antegrade Left Vertebral: Antegrade Rhythm: Normal Elevated velocities Left ICA and ECA. IMPRESSION: No evidence for hemodynamically significant stenosis at this time. Criteria for Assigning % of Stenosis / Diameter reduction (Estimation based on the indirect measurements of the internal carotid artery velocities (ICA PSV). 1. Normal (no stenosis)=ICA PSV < 125 cm/s: ratio < 2.0: ICA EDV<40 cm/s. 2. Less than 50% stenosis=ICA PSV < 125 cm/s: ratio < 2.0: ICA EDV<40 cm/s. 3. 50 to 69% stenosis=ICA PSV of 125 to 230 cm/s: ration 2.0 ? 4.0: ICA EDV 40-100 cm/s. 4. Greater than 70% stenosis to near occlusion= ICA PSV > 230 cm/s: ratio > 4.0: ICA EDV > 100 cm/s. 5. Near occlusion= ICA PSV velocities may be low or undetectable: variable ratio and ICA EDV. 6. Total occlusion=unable to detect flow.
[2019-10-19 14:57] VITALS: BP 133/73; PULSE 66; RESP 18; TEMP 97.5
[2019-10-19] MEDS: SODIUM CHLORIDE 0.9% 1,000 ML IV SCH (15:13)
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
[2019-10-19 17:15] LABS: Cholesterol 216 mg/dL (<200); HDL Cholesterol 66 mg/dL (40-60); LDL Cholesterol,Calculated 116 mg/dL (0-99); Triglycerides 169 mg/dL (<150)
[2019-10-19 17:54] LABS: Folate, Serum 13.8 ng/mL
[2019-10-20 01:56] LABS: Hemoglobin A1C 5.4 % (4.0-6.0)
== END 2019-10-19 15:53 | disposition home health service (06) | DRG 897 ==
LOC: EC 00:44 → 5NMEDONC 01:15 → 3SCARD 03:45 → 4SSUR 10-18 20:32
PROVIDERS: ADMIT Family Medicine; ATTEND Family Medicine
DX: F10.239 Alcohol dependence with withdrawal, unspecified (principal); E03.9 Hypothyroidism, unspecified; Z20.828 Contact with and (suspected) exposure to other viral communicable diseases; E78.5 Hyperlipidemia, unspecified; E87.6 Hypokalemia; F32.9 Major depressive disorder, single episode, unspecified; I10 Essential (primary) hypertension; I16.0 Hypertensive urgency; I25.10 Atherosclerotic heart disease of native coronary artery without angina pectoris; I25.2 Old myocardial infarction; K75.81 Nonalcoholic steatohepatitis (NASH); M16.11 Unilateral primary osteoarthritis, right hip; M16.12 Unilateral primary osteoarthritis, left hip; M51.26 Other intervertebral disc displacement, lumbar region; T50.2X5A Adverse effect of carbonic-anhydrase inhibitors, benzothiadiazides and other diuretics, initial encounter; I34.0 Nonrheumatic mitral (valve) insufficiency; Z91.81 History of falling; Z79.02 Long term (current) use of antithrombotics/antiplatelets; Z79.82 Long term (current) use of aspirin; Z79.890 Hormone replacement therapy; Z79.899 Other long term (current) drug therapy; Z87.19 Personal history of other diseases of the digestive system; Z87.891 Personal history of nicotine dependence; Z89.021 Acquired absence of right finger(s); Z95.1 Presence of aortocoronary bypass graft; Z96.649 Presence of unspecified artificial hip joint; M10.9 Gout, unspecified; Z86.010 Personal history of colon polyps; Z98.42 Cataract extraction status, left eye; Z98.41 Cataract extraction status, right eye
CPT/HCPCS: 36415; 80048; 80053; 80061; 81001; 82607; 82746; 83036; 83605; 83735; 85025; 85610; 85730; 87040; 93005; 93306; 93880; 96365; 96366; 96372; 96375; 99285

== ENCOUNTER → 2020-02-21 | Outpatient (CLI) | payer MEDICARE, OTHER ==
--- NOTE | 2020-02-22 02:42 | MR ---
EXAMINATION TYPE: MR cervical spine wo con DATE OF EXAM: 02/21/2020 COMPARISON: 05/14/2011 HISTORY: Neck pain, falls Multiplanar multiecho imaging of the cervical spine was performed without contrast. Cervical vertebra have normal alignment. There is degenerative disc space narrowing at C5-6 and C6-7. There is small posterior disc herniations from C4 to C7. Spinal canal measures 7.5 mm at C4-5. Canal is 7.5 cm at C5-6. Canal measures 10 mm at C6-7. There is no edema in the cord. The brainstem is int act. There is no compression fracture. There is no evidence of paraspinal mass. IMPRESSION: Multilevel spondylotic changes in the lower cervical spine. There is a minimal relative spinal stenos is at C5-6 and C4-5 as above. No significant change compared to old exam
== END | disposition home or self-care (01) ==
LOC: RADMRIMAIN 16:04
PROVIDERS: ATTEND Family Medicine
DX: M48.02 Spinal stenosis, cervical region (principal); M47.812 Spondylosis without myelopathy or radiculopathy, cervical region
CPT/HCPCS: 72141

== ENCOUNTER → 2020-04-04 | Outpatient (CLI) | payer MEDICARE, OTHER ==
--- NOTE | 2020-04-04 10:25 | CT ---
EXAMINATION TYPE: CT thoracic spine wo con DATE OF EXAM: 04/04/2020 COMPARISON: None HISTORY: M54.6 Pain in thoracic spine M54.2 low back pain Automated exposure control for dose reduction was used. Unenhanced CT of the thoracic spine was perfo rmed with axial sagittal and coronal images reviewed in the bone and soft tissue window settings. FINDINGS: Multilevel degenerative disc space narrowing is noted being mild to moderate in degree. There is scat tered ventral spondylosis. There is no evidence for disc herniation or central stenosis. The thoracic segments are intact. Normal alignment is seen. No fracture or bony lesion evident. No evidence of pa raspinal mass. Visualized lung windows demonstrate senescent parenchymal change at the lung bases. Ec tatic and atheromatous change of the thoracic aorta. IMPRESSION: DEGENERATIVE CHANGES WITHOUT EVIDENCE OF FRACTURE, DISC HERNIATION OR CENTRAL STENOSIS.
--- NOTE | 2020-04-04 10:29 | CT ---
EXAMINATION TYPE: CT cervical spine wo con DATE OF EXAM: 04/04/2020 COMPARISON: None HISTORY: Neck pain Unenhanced CT of the cervical spine was performed with bone and soft tissue window settings submitted . Coronal and sagittal reconstruction is obtained. There is normal alignment and prevertebral soft tissues. I do not see evidence for fracture or subluxation. C2-3: Mild degenerative disc space narrowing. Mild posterocentral disc bulge. No herniation protrusio n or central stenosis. Foramina are patent bilaterally. C3-4: Moderate disc desiccation. Posterior disc bulge with partially encapsulating spur resulting in disc endplate complex. Mild effacement ventral thecal sac. No evidence for herniation or central sten osis. Advanced degenerative change of the cervical apophyseal joints resulting in left greater than r ight foraminal encroachment. C4-5: Mild degenerative disc space narrowing. Mild posterocentral disc bulge. No herniation protrusio n or central stenosis. Foramina are patent probably bilaterally. C5-C6:Moderate disc desiccation. Posterior disc bulge with partially encapsulating spur resulting in disc endplate complex. Mild effacement ventral thecal sac. No evidence for herniation or central sten osis. Advanced degenerative change of the cervical apophyseal joints resulting in left greater than r ight foraminal encroachment. C6-7: There is evidence of vacuum disc. There is mild posterior disc bulge. C7 no cystic degenerative change noted. No evidence for disc herniation or central stenosis. Bilateral foraminal encroachment. IMPRESSION: 1. Multilevel degenerative disc disease and spondylosis.
== END | disposition home or self-care (01) ==
LOC: RADCTMAIN 08:49
PROVIDERS: ATTEND Orthopaedic Surgery
DX: M47.812 Spondylosis without myelopathy or radiculopathy, cervical region (principal); M50.321 Other cervical disc degeneration at C4-C5 level; M47.814 Spondylosis without myelopathy or radiculopathy, thoracic region
CPT/HCPCS: 72125; 72128

== ENCOUNTER 2020-06-19 09:35 | Day surgery (SDC) | payer MEDICARE, OTHER ==
[2020-06-14 14:02] VITALS: BMI 27.4
[~2020-06-19 09:35] MED LIST changes: -ACETAMINOPHEN TAB 500 MG TAB PO ONE; +LACTATED RINGERS 1,000 ML IV SCH; -LIDOCAINE 1% 20 ML VIAL (10MG/ML) FOR IV START INTRADERMA PRN; -MELOXICAM 7.5 MG TAB PO ONE; -ONDANSETRON 4 MG/2 ML VIAL IVP ONE; -ROPIVACAINE 246.25 MG, EPINEPHrine 0.5 MG, KETOROLAC 30 MG, cloNIDine HCL/PF 80 MCG, WA... MISCELLANE ONE; -TRANEXAMIC ACID 1,000 MG in SODIUM CHLORIDE 0.9% 100 ML IVPB ONE; -fentaNYL (PF) 50 MCG/ML 2 ML AMP IV PRN
[2020-06-19] MEDS ORDERED: LIDOCAINE 1% (10MG/ML) FOR IV START INTRADERMA ONE (10:09)
[2020-06-19 10:25] VITALS: TEMP 97.5
[2020-06-19] MEDS ORDERED: fentaNYL (PF) 50 MCG/ML 2 ML AMP ONE (10:35)
[2020-06-19] MEDS ORDERED: IOPAMIDOL M200 10 ML VIAL ONE (10:35)
[2020-06-19] MEDS ORDERED: methylPREDNISolone ACETATE 40 MG/ML 1 ML VIAL ONE (10:35)
[2020-06-19] MEDS ORDERED: MIDAZOLAM 2 MG/2 ML VIAL ONE (10:35)
--- NOTE | 2020-06-19 10:51 | P.PCN ---
Date of Procedure: 06/19/20 Procedure(s) Performed: PREOPERATIVE DIAGNOSIS:1- Lumbar radiculopathy . 2-Lumbar degenerative disc disease POSTOPERATIVE DIAGNOSIS: Same as preoperative diagnoses. PROCEDURE 1. Transforaminal epidural steroid injection under fluoroscopic guidance at right L4-5 level. (Fluoroscopy images stored on file in the radiology Department ) 2. Lumbar epidurogram . ANESTHESIA: Local with 1% lidocaine 3 ml , moderate sedation with intravenous Versed 2 mg and fentanyle 50 micrograms. EBL: Minimal PROCEDURE INDICATION: The patient with low back pain and radiculopathy symptoms unresponsive to conservative treatment. PROCEDURE DESCRIPTION / TECHNIQUE: The patient was seen and identified in the preoperative area. Risks, benefits, complications, and alternatives were discussed with the patient. The patient agreed to proceed with the procedure and signed the consent. IV was started, and vital signs were stable. Patient was taken to the OR and time out was completed. The patient was placed in the prone position on procedure table and a pillow was placed under the abdomen to reduce lumbar lordosis. The lumbosacral area was prepped and draped in the usual sterile fashion. Critical pause was taken. Vital signs were closely monitored during the procedure. Conscious sedation was used during the procedure to decrease patient s anxiety. Using oblique fluoroscopy, the chin of the ``Zach dog at right L4-5 level was identified, and the skin and deeper tissues just below was localized with 1% lidocaine. Subsequently, a 22-gauge 3.5-inch spinal needle was advanced under a tunneled view fluoroscopic guidance just underneath the chin of the ``Zach dog at the right L4-5 Under lateral fluoroscopy, the needle was then advanced to the posterior border of the interforaminal space. After negative aspiration of CSF and blood and with no paresthesias, 1 mL Isovue 200 contrast dye was injected excellent epidurogram and outlining of the nerve root Subsequently, 3 mL of block solution containing 40 mg Depo-Medrol and 2 mL of 0.9% normal saline PF was injected. Needle was removed . At the end of the procedure, skin was cleansed, and bandages were applied. COMPLICATIONS:none DISPOSITION / PLANS: The patient was placed in a supine position and transferred to the recovery area in a stable condition for observation. There was no evidence of lower extremity motor or sensory deficit after the procedure. Patient was discharged from the recovery room after meeting discharge criteria. Home discharge instructions were given to the patient by the staff. The patient was reexamined prior to discharge.
[2020-06-19] MEDS ORDERED: IV FLUID CONTINUATION 1,000 ML IV ONE ×2 (11:00)
[2020-06-19 11:13] VITALS: RESP 20
[2020-06-19 11:31] VITALS: BP 103/64; PULSE 75
--- NOTE | 2020-06-19 11:39 | FL ---
EXAMINATION TYPE: FL guided pain mgmt statistic DATE OF EXAM: 06/19/2020 FLUOROSCOPY Fluoroscopy time of 4 seconds was used during transforaminal epidural steroid injection of the lumbar spine. 2 image/s document/s the procedure.
== END 2020-06-19 11:48 | disposition home or self-care (01) ==
LOC: EDBD → ORPAIN 09:35
PROVIDERS: ATTEND Specialist
DX: M51.16 Intervertebral disc disorders with radiculopathy, lumbar region (principal); I25.10 Atherosclerotic heart disease of native coronary artery without angina pectoris; Z79.02 Long term (current) use of antithrombotics/antiplatelets; Z88.1 Allergy status to other antibiotic agents; Z88.5 Allergy status to narcotic agent; Z88.8 Allergy status to other drugs, medicaments and biological substances
CPT/HCPCS: 64483; J2250; J1030; J3010; Q9966; 99152

== ENCOUNTER 2020-07-05 12:19 | Day surgery (SDC) | payer MEDICARE, OTHER ==
[2020-07-03 09:36] VITALS: BMI 27.8
[2020-07-05 13:23] VITALS: TEMP 98.1
[2020-07-05 13:29] LABS: Glucose,Whole Blood 97 mg/dL (75-99)
[2020-07-05] MEDS ORDERED: LIDOCAINE 1% (10MG/ML) FOR IV START INTRADERMA ONE (13:30)
[2020-07-05] MEDS ORDERED: IOPAMIDOL M200 10 ML VIAL ONE (13:37)
[2020-07-05] MEDS ORDERED: fentaNYL (PF) 50 MCG/ML 2 ML AMP ONE (13:37)
[2020-07-05] MEDS ORDERED: methylPREDNISolone ACETATE 40 MG/ML 1 ML VIAL ONE (13:37)
[2020-07-05] MEDS ORDERED: MIDAZOLAM 2 MG/2 ML VIAL ONE (13:37)
--- NOTE | 2020-07-05 13:48 | P.PCN ---
Date of Procedure: 07/05/20 Procedure(s) Performed: PREOPERATIVE DIAGNOSIS:1- Lumbar radiculopathy . 2-Lumbar degenerative disc disease POSTOPERATIVE DIAGNOSIS: Same as preoperative diagnoses. PROCEDURE 1. Transforaminal epidural steroid injection under fluoroscopic guidance at right L4-5 level. (Fluoroscopy images stored on file in the radiology Department ) 2. Lumbar epidurogram . ANESTHESIA: Local with 1% lidocaine 3 ml , moderate sedation with intravenous Versed 1 mg and fentanyle 50 micrograms. EBL: Minimal PROCEDURE INDICATION: The patient with low back pain and radiculopathy symptoms unresponsive to conservative treatment. PROCEDURE DESCRIPTION / TECHNIQUE: The patient was seen and identified in the preoperative area. Risks, benefits, complications, and alternatives were discussed with the patient. The patient agreed to proceed with the procedure and signed the consent. IV was started, and vital signs were stable. Patient was taken to the OR and time out was completed. The patient was placed in the prone position on procedure table and a pillow was placed under the abdomen to reduce lumbar lordosis. The lumbosacral area was prepped and draped in the usual sterile fashion. Critical pause was taken. Vital signs were closely monitored during the procedure. Conscious sedation was used during the procedure to decrease patient s anxiety. Using oblique fluoroscopy, the chin of the ``Zach dog at right L4-5 level was identified, and the skin and deeper tissues just below was localized with 1% lidocaine. Subsequently, a 22-gauge 3.5-inch spinal needle was advanced under a tunneled view fluoroscopic guidance just underneath the chin of the ``Zach dog at the right L4-5 Under lateral fluoroscopy, the needle was then advanced to the posterior border of the interforaminal space. After negative aspiration of CSF and blood and with no paresthesias, 1 mL Isovue 200 contrast dye was injected excellent epidurogram and outlining of the nerve root Subsequently, 3 mL of block solution containing 40 mg Depo-Medrol and 2 mL of 0.9% normal saline PF was injected. Needle was removed . At the end of the procedure, skin was cleansed, and bandages were applied. COMPLICATIONS:none DISPOSITION / PLANS: The patient was placed in a supine position and transferred to the recovery area in a stable condition for observation. There was no evidence of lower extremity motor or sensory deficit after the procedure. Patient was discharged from the recovery room after meeting discharge criteria. Home discharge instructions were given to the patient by the staff. The patient was reexamined prior to discharge.
[2020-07-05] MEDS ORDERED: LACTATED RINGERS 1,000 ML IV ONE (13:52)
--- NOTE | 2020-07-05 13:59 | FL ---
EXAMINATION TYPE: FL guided pain mgmt statistic DATE OF EXAM: 07/05/2020 CLINICAL HISTORY: Low back pain. TECHNIQUE: Fluoroscopy. COMPARISON: None. FINDINGS: Fluoroscopic guidance was provided during pain relief procedure performed by Dr. Batista . A total of 6 seconds of fluoroscopic time was utilized during the procedure and 1 spot images are acquired. Single limited acquired shows needle localization off the midline at L4 level. IMPRESSION: As Above.
[2020-07-05 14:31] VITALS: BP 156/73; PULSE 66; RESP 14
== END 2020-07-05 14:41 | disposition home or self-care (01) ==
LOC: ORPAIN 12:19
PROVIDERS: ATTEND Specialist
DX: M51.16 Intervertebral disc disorders with radiculopathy, lumbar region (principal); I25.10 Atherosclerotic heart disease of native coronary artery without angina pectoris; I10 Essential (primary) hypertension; Z88.1 Allergy status to other antibiotic agents; Z88.5 Allergy status to narcotic agent; Z79.02 Long term (current) use of antithrombotics/antiplatelets; Z79.899 Other long term (current) drug therapy
CPT/HCPCS: 64483; J2250; J1030; J3010; Q9966

== ENCOUNTER → 2020-07-23 | Outpatient (CLI) | payer MEDICARE, OTHER ==
[2020-07-23 12:15] VITALS: BP 162/80; PULSE 86; RESP 18; TEMP 98.5
--- NOTE | 2020-07-23 12:34 | P.PN ---
Subjective Progress Note Date: 07/23/20 This is an 80-year-old gentleman with history of chronic lower back pain for which he had transforaminal epidural steroid injection at the L5-S1 and L4 5 level on the right side. The patient has pain in the lower back with radiation to both lower extremities more on the right side than the left side. This injection will give him 80% of pain relief at rest however when he does activities his pain is back to its baseline as he states. The patient is frustrated because of that and he is going to see Dr. Rivera who referred him to us for the above-mentioned procedures. The patient falls a lot as he states and he has imbalanced gait. Patient denies new-onset weakness, bowel/bladder incontinence, or any other signs or symptoms of cauda equina syndrome. There are no signs of acute intoxication, and no indications of medication diversion or overuse. In addition to above, 13-point review of systems is also negative for chest pain, shortness of breath, changes in vision, changes in hearing, new onset weakness, abdominal pain, diarrhea, extreme fatigue, malaise, fever, skin changes, homicidal or suicidal ideation, or bowel or bladder incontinence. Vital Signs: Reviewed in EMR Gen: AAOx3, NAD HEENT: PERRLA,hearing grossly normal Pulm: resp unlabored Neck: supple, trachea midline Neuro exam of the lower extremities: Normal muscle strength bilaterally Straight leg raising test: Negative bilaterally Paul's test: Range of motion of the lumbar spine: Facet loading test: Tenderness in the paravertebral musculature: No tenderness in the paravertebral lumbar area. Neuro: CN II-XII grossly intact, Imaging: Reviewed in EMR/chart Assessment: Lumbar stenosis Lumbar degenerative disc disease Lumbar spondylosis without myelopathy Plan: 1. Explanation: Opioid and psychological risk scores were reviewed. Diagnoses, prognoses, and multiple treatment options including but not limited to physical therapy, interventional therapies, adjuvant medical therapies, narcotic medication therapies, and surgery were discussed with the patient and all questions were answered to the patient's satisfaction. 2. Opioid agreement: Signed with the patient and the patient is warned not to use opioids while driving or before driving and not to combine opioids with benzodiazepines or alcohol. 3. Counseling: The patient was counseled extensively on SMOKING CESSATION, BODY MASS INDEX, EXERCISE. Specifically, the patient was instructed regarding the im portance of smoking cessation, obesity, and exercise in the context of both chronic pain and overall health. 4. Procedures: None for now .we'll wait for Dr. Rivera input 5. Consultations: None 6. Investigations: None 7. Medications: None 8. Disposition: To clinic as needed 9. Maps were reviewed and were appropriate. Objective - Vital Signs Vital signs: Vital Signs Temp 98.5 F 07/23/20 12:11 Pulse 86 07/23/20 12:11 Resp 18 07/23/20 12:11 BP 162/80 07/23/20 12:11 Pulse Ox 98 07/23/20 12:11
== END ==
LOC: PNWHC3 12:04
PROVIDERS: ATTEND Anesthesiology
DX: M51.36 Other intervertebral disc degeneration, lumbar region (principal); M48.061 Spinal stenosis, lumbar region without neurogenic claudication; M47.816 Spondylosis without myelopathy or radiculopathy, lumbar region; Z88.1 Allergy status to other antibiotic agents; Z88.5 Allergy status to narcotic agent; Z88.8 Allergy status to other drugs, medicaments and biological substances; Z87.891 Personal history of nicotine dependence
CPT/HCPCS: 99211

== ENCOUNTER 2020-08-16 10:32 | Day surgery (SDC) | payer MEDICARE, OTHER ==
[2020-08-15 11:51] VITALS: BMI 27.8
[2020-08-16 11:00] VITALS: TEMP 97.6
[2020-08-16] MEDS ORDERED: DEXAMETHASONE SOD PHOSPHATE 10 MG/ML 1 ML VIAL ONE (12:14)
[2020-08-16] MEDS ORDERED: fentaNYL (PF) 50 MCG/ML 2 ML AMP ONE (12:14)
[2020-08-16] MEDS ORDERED: MIDAZOLAM 2 MG/2 ML VIAL ONE (12:14)
[2020-08-16] MEDS ORDERED: IOPAMIDOL M200 10 ML VIAL ONE (12:14)
[2020-08-16] MEDS ORDERED: LIDOCAINE 1% INJ 10MG/ML (20 ML MDV) ONE (12:14)
--- NOTE | 2020-08-16 12:27 | P.PCN ---
Date of Procedure: 08/16/20 Surgeon: Rob Ordaz Pathology: none sent Condition: stable Disposition: PACU Description of Procedure: PREOPERATIVE DIAGNOSIS:1- Lumbar radiculopathy . 2-Lumbar degenerative disc disease POSTOPERATIVE DIAGNOSIS: Same as preoperative diagnoses. PROCEDURE 1. Transforaminal epidural steroid injection under fluoroscopic guidance at right L4-5 level. (Fluoroscopy images stored on file in the radiology Department ) 2. Lumbar epidurogram . ANESTHESIA: Local with 1% lidocaine 3 ml , moderate sedation with intravenous Versed 1 mg and fentanyle 50 micrograms. EBL: Minimal PROCEDURE INDICATION: The patient with low back pain and radiculopathy symptoms unresponsive to conservative treatment. PROCEDURE DESCRIPTION / TECHNIQUE: The patient was seen and identified in the preoperative area. Risks, benefits, complications, and alternatives were discussed with the patient. The patient agreed to proceed with the procedure and signed the consent. IV was started, and vital signs were stable. Patient was taken to the OR and time out was completed. The patient was placed in the prone position on procedure table and a pillow was placed under the abdomen to reduce lumbar lordosis. The lumbosacral area was prepped and draped in the usual sterile fashion. Critical pause was taken. Vital signs were closely monitored during the procedure. Conscious sedation was used during the procedure to decrease patient s anxiety. Using oblique fluoroscopy, the chin of the `PascualZach dog at right L4-5 level was identified, and the skin and deeper tissues just below was localized with 1% lidocaine. Subsequently, a 22-gauge 3.5-inch spinal needle was advanced under a tunneled view fluoroscopic guidance just underneath the chin of the `Foxy dog at the right L4-5 Under lateral fluoroscopy, the needle was then advanced to the posterior border of the interforaminal space. After negative aspiration of CSF and blood and with no paresthesias, 1 mL Isovue 200 contrast dye was injected excellent epidurogram and outlining of the nerve root Subsequently, 2 mL of block solution containing 10 mg Decadron and 1 mL of lidocaine 1% was injected. Needle was removed . At the end of the procedure, skin was cleansed, and bandages were applied. COMPLICATIONS:none DISPOSITION / PLANS: The patient was placed in a supine position and transferred to the recovery area in a stable condition for observation. There was no evidence of lower extremity motor or sensory deficit after the procedure. Patient was discharged from the recovery room after meeting discharge criteria. Home discharge instructions were given to the patient by the staff.
[2020-08-16] MEDS ORDERED: IV FLUID CONTINUATION 800 ML IV ONE (12:36)
[2020-08-16 13:02] VITALS: RESP 20
[2020-08-16 13:05] VITALS: BP 108/76; PULSE 80
--- NOTE | 2020-08-16 14:53 | FL ---
Fluoroscopy HISTORY: Pain 10 seconds fluoroscopy time supplied to the referring clinician. 1 intraoperative C-arm images docum ent the procedure. See dictated report from anesthesia.
== END 2020-08-16 12:05 | disposition home or self-care (01) ==
LOC: ORPAIN 10:32
PROVIDERS: ATTEND Anesthesiology
DX: M51.16 Intervertebral disc disorders with radiculopathy, lumbar region (principal); Z79.02 Long term (current) use of antithrombotics/antiplatelets; Z79.82 Long term (current) use of aspirin; I25.10 Atherosclerotic heart disease of native coronary artery without angina pectoris; Z88.5 Allergy status to narcotic agent
CPT/HCPCS: 64483; J2250; J1100; J2001; J3010; Q9966

== ENCOUNTER → 2020-10-29 | Outpatient (CLI) | payer MEDICARE, OTHER ==
[2020-10-29 08:38] VITALS: BP 141/72; PULSE 79; RESP 18; TEMP 98
--- NOTE | 2020-10-29 08:48 | P.PAINPG ---
Subjective Progress Note Date: 10/29/20 This is an 80-year-old gentleman with history of chronic lower back pain for which he had transforaminal epidural steroid injection at the L5-S1 and L4 5 level on the right side x3 since 05/2020. In the past injections are given him 80% pain relief at rest however when he does activities his pain comes back. Plan for him was to see Dr. Rivera. He was concerned about that he is falling a lot and having of imbalanced gait. Here for followup today. Patient says that the most recent transforaminal epidural steroid injection help with his leg pain but he is significant only having low back pain. He says that he is unable to do anything and it is very frustrating for him given that he is very active person. Pain is located over the right low back with no radiation to the lower extremities. Pain is described as sharp and stabbing and is constant throughout the day. He has not seen Dr. Rivera since the injections and he is scheduled to see another surgeon for a second opinion. Patient denies new-onset weakness, bowel/bladder incontinence, or any other signs or symptoms of cauda equina syndrome. There are no signs of acute intoxication, and no indications of medication diversion or overuse. In addition to above, 13-point review of systems is also negative for chest pain, shortness of breath, changes in vision, changes in hearing, new onset weakness, abdominal pain, diarrhea, extreme fatigue, malaise, fever, skin changes, homicidal or suicidal ideation, or bowel or bladder incontinence. Vital Signs: Reviewed in EMR Gen: AAOx3, NAD HEENT: PERRLA,hearing grossly normal Pulm: resp unlabored Neck: supple, trachea midline Neuro exam of the lower extremities: Normal muscle strength bilaterally Straight leg raising test: Negative bilaterally Paul's test:negative Range of motion of the lumbar spine: limited on flexion severely Facet loading test:positive bilaterally Tenderness in the paravertebral musculature: No tenderness in the paravertebral lumbar area. Neuro: CN II-XII grossly intact, Imaging: Reviewed in EMR/chart Assessment: Lumbar stenosis Lumbar degenerative disc disease Lumbar spondylosis without myelopathy Plan: - We will schedule him for right-sided medial branch block at L4-L5 and L5-S1. I encouraged him to see a second opinion just to discuss his options. I went over the entire pathway of the 2 medial branch blocks and radiofrequency ablation. Patient is understanding. -I have spent 32 minutes on patient care today. The time was used to review the medical records including relevant urine studies and prescription history, review of the available imaging, evaluation and examination of the patient, coordination of care with the medical staff and if applicable referring physicians, as well as creation of the medical record. PQRS Measure Charge Sheet PQRS Narrative: Smoking Status Former smoker Pain Intensity [Lower Back] 8 Scale Used Numeric (1 - 10) Hx Alcohol Use (MH) Yes Home Medications: Ambulatory Orders Cholecalciferol [Vitamin D3 (25 Mcg = 1000 Iu)] 2,000 unit PO DAILY 07/03/16 Citalopram Hydrobromide [CeleXA] 20 mg PO DAILY 07/03/16 Clopidogrel [Plavix] 75 mg PO DAILY 07/03/16 Levothyroxine Sodium [Synthroid] 50 mcg PO DAILY 07/03/16 amLODIPine BESYLATE [Norvasc] 10 mg PO DAILY 07/03/16 Famotidine 40 mg PO DAILY 10/17/19 Furosemide [Lasix] 20 mg PO BID 10/17/19 Potassium Chloride ER [K-Dur 20] 20 meq PO DAILY 10/17/19 Rosuvastatin Calcium 20 mg PO SUMOWEFR 10/17/19 Vitamin B Complex/Folic Acid [Vitamin B Complex Tablet] 0.4 mg PO HS 10/17/19 Aspirin EC [Ecotrin Low Dose] 81 mg PO DAILY #30 tablet. 10/19/19 Losartan [Cozaar] 50 mg PO DAILY #30 tab 10/19/19 Thiamine [Vitamin B-1] 100 mg PO DAILY #30 tablet 10/19/19 Allopurinol [Zyloprim] 300 mg PO BID 06/14/20 Metoprolol Succinate [Toprol XL] 100 mg PO DAILY 06/14/20 traMADol HCL [Ultram] 50 mg PO Q6HR PRN 10/23/20 Controlled Substance Measures - Controlled Substance Measures Is patient prescribed a controlled substance at discharge?: No
== END | disposition home or self-care (01) ==
LOC: PNWHC3 08:28
PROVIDERS: ATTEND Anesthesiology
DX: M48.061 Spinal stenosis, lumbar region without neurogenic claudication (principal); M51.36 Other intervertebral disc degeneration, lumbar region; M47.896 Other spondylosis, lumbar region
CPT/HCPCS: 99211

== ENCOUNTER 2020-11-22 11:38 | Day surgery (SDC) | payer MEDICARE, OTHER ==
[2020-11-21 12:01] VITALS: BMI 27.4
[2020-11-22 12:19] VITALS: TEMP 97.2
[2020-11-22] MEDS ORDERED: ROPIVACAINE 5MG/ML 20ML VIAL ONE (12:25)
[2020-11-22] MEDS ORDERED: methylPREDNISolone ACETATE 40 MG/ML 1 ML VIAL ONE (12:25)
--- NOTE | 2020-11-22 12:42 | P.PCN ---
Date of Procedure: 11/22/20 Procedure(s) Performed: PREOPERATIVE DIAGNOSIS : 1- Lumbar spondylosis with Facet Arthropathy without myelopathy . 2- Lumber degenerative disc disease POSTOPERATIVE DIAGNOSIS: 1- Lumbar spondylosis with Facet Arthropathy without myelopathy . 2- Lumber degenerative disc disease PROCEDURE: Diagnostic Right L3 , L4 , and L5 medial branch block under fluoroscopy guidance(fluoroscopy images available in the radiology Department ) ( To target the facet joint between Right L4-5 , and L5-S1 )#1st ANESTHESIA:, local infiltrations with ropivacaine 0.5% 3 mL. EBL: Minimal COMPLICATION: None PROCEDURE INDICATION: Chronic low back pain secondary to Facet arthropathy unresponsive to conservative treatment. PROCEDURE DESCRIPTION: the patient was seen and identified in the preop holding area , risks and benefits and possible complications of the procedure and alternative were discussed with the patient, and the patient agreed to proceed with the procedure and signed the consent and vital signs monitored during the procedure and fluoroscopy was used to maximize the benefit and accuracy of the needle placement,, patient was taken to the procedure room and placed in prone position vital signs monitored in the back prepped with chlorhexidine X3 then under strict sterile technique using a right oblique fluoroscopy ,the junction of the transverse process and the superior articulating process of the right L3 , L4 , and L5 vertebra which corresponding to the fluoroscopy image of the eye of the Zach dog on the block side for the medial branches and subsequently , after local infiltration of skin and subcu tissuies with Ropivacaine 0.5 % , one mL at each level ,then 25-gauge Quincke-type needles , 3 needle was used , each one of them placed at the junction of the base of the transverse process and the superior articular process at the appropriate level, and the needle was advanced until the periosteum contacted, needle placement confirmed with AP oblique and lateral view and after appropriate needle placement confirmed, and after negative aspiration for heme and CSF and there was no paresthesia 1-1/2 mL of Ropivacaine 0.5% mixed with 20 mg Depo-Medrol , then half mL injected at each level after negative aspiration the needle subsequently removed intact. At the end of the procedure and the needles removed and a bandage applied after the skin was cleaned the cleaning solution patient taken to recovery room in stable condition and monitors in the recovery room for 20-30 minutes and discharged home in stable condition after discharge criteria met and patient will follow up with the pain clinic in 2-4 weeks
[2020-11-22 12:53] VITALS: RESP 16
[2020-11-22 13:04] VITALS: BP 148/77; PULSE 73
--- NOTE | 2020-11-22 14:26 | FL ---
Fluoroscopy HISTORY: Pain 5 seconds fluoroscopy time supplied to the referring clinician. 2 intraoperative C-arm images docume nt the procedure. See dictated report from anesthesia.
== END 2020-11-22 13:12 | disposition home or self-care (01) ==
LOC: ORPAIN 11:38
PROVIDERS: ATTEND Specialist
DX: M51.36 Other intervertebral disc degeneration, lumbar region (principal); M47.816 Spondylosis without myelopathy or radiculopathy, lumbar region
CPT/HCPCS: 64493; 64494; J1030; J2795

== ENCOUNTER 2021-01-03 10:40 | Day surgery (SDC) | payer MEDICARE, OTHER ==
[2021-01-02 09:05] VITALS: BMI 28.3
[2021-01-03 11:14] VITALS: TEMP 97.6
[2021-01-03] MEDS ORDERED: TRIAMCINOLONE ACETONIDE 40 MG/ML 1 ML VIAL ONE (12:22)
[2021-01-03] MEDS ORDERED: ROPIVACAINE 5MG/ML 20ML VIAL ONE (12:22)
[2021-01-03] MEDS ORDERED: IOPAMIDOL M200 10 ML VIAL ONE (12:22)
--- NOTE | 2021-01-03 12:43 | P.PCN ---
Date of Procedure: 01/03/21 Surgeon: Rob Ordaz Pathology: none sent Condition: stable Disposition: PACU Description of Procedure: PREOPERATIVE DIAGNOSIS : 1- Lumbar spondylosis with Facet Arthropathy without myelopathy . 2- Lumber degenerative disc disease POSTOPERATIVE DIAGNOSIS: 1- Lumbar spondylosis with Facet Arthropathy without myelopathy . 2- Lumber degenerative disc disease PROCEDURE: Diagnostic right L3 -4 , L4 -5 , and L5-S1 medial branch block under fluoroscopy Physician: Rob Ordaz MD ANESTHESIA: Local only with 1% lidocaine EBL: Negligible COMPLICATION: None. PROCEDURE INDICATION: Chronic low back pain secondary to Facet arthropathy unresponsive to conservative treatment. PROCEDURE DESCRIPTION: the patient was seen and identified in the preop holding area , risks and benefits and possible complications of the procedure and alternatives were discussed with the patient, and the patient agreed to proceed with the procedure and signed the consent. IV was started and vital signs monitored during the procedure and fluoroscopy was used to maximize the benefit and accuracy of the needle placement, sedation was given to decrease patient anxiety, patient was taken to the procedure room and placed in prone position vital signs monitored. The patient was brought into the procedure room and placed in prone position. Skin was prepped with Chloraprep and draped in a sterile manner. Lidocaine 1% was used to numb the skin up at the target points that were chosen as follows: at the L5-S1 level which corresponds to the dorsal ramus of L5 the target points were at the superior medial aspect of the sacral ala on each side of the spine on the AP view of fluoroscopy, and for the L3 and L4 medial branches the target points were the connection between the transverse process and the superior articular process of L4 and L5 respectively on the oblique views of fluoroscopy. I used 22-gauge 3-1/2 inch Quincke spinal needles for this procedure and after contacting bone at the target points mentioned above I injected 1 mL of a mixture of Kenalog 40 mg +2 MLS of Ropivacaine 0.5% PF . Patient tolerated procedure well. At the end of the procedure the needles removed and a bandage applied after the skin was cleaned the cleaning solution. patient was then taken to the recovery room in stable condition and monitored in the recovery room for 20-30 minutes and discharged home in stable condition after discharge criteria met . A copy of the needle placement picture was saved to the C-arm machine.
--- NOTE | 2021-01-03 12:57 | FL ---
EXAMINATION TYPE: FL guided pain mgmt statistic DATE OF EXAM: 01/03/2021 CLINICAL HISTORY: Low back pain. TECHNIQUE: Fluoroscopy. COMPARISON: None. FINDINGS: Fluoroscopic guidance was provided during pain relief procedure performed by Dr. Ordaz . A total of 7 seconds of fluoroscopic time was utilized during the procedure and 3 spot images are a cquired. Images acquired shows needle localization at several levels off The midline in the lower keagan mbar spine. IMPRESSION: As Above.
[2021-01-03 13:02] VITALS: BP 162/71; PULSE 83; RESP 14
== END 2021-01-03 13:16 | disposition home or self-care (01) ==
LOC: ORPAIN 10:40
PROVIDERS: ATTEND Anesthesiology
DX: M47.816 Spondylosis without myelopathy or radiculopathy, lumbar region (principal); G89.29 Other chronic pain
CPT/HCPCS: 64495; 64493; 64494; J3301; Q9966; J2795

== ENCOUNTER → 2021-01-23 | Outpatient (CLI) | payer MEDICARE, OTHER ==
[2021-01-23 10:56] VITALS: BP 128/75; PULSE 89; RESP 18; TEMP 98.3
--- NOTE | 2021-01-23 12:22 | P.PN ---
Subjective Progress Note Date: 01/23/21 Anoop is a 80-year-old male presented to clinic today for follow-up appointment after his diagnostic and confirmatory lumbar medial branch blocks. On January 03 he had a right medial branch block at L4 5 and L5-S1. He reports that he's had greater than 100% relief since procedure. This is allowed him to increase his daily activities with reduction in pain. This pain is increased with excessive activities including mowing the lawn. Better with rest and interventions. He would like to move forward with the lumbar radiofrequency ablation on the right side at L4 5 L5-S1. He denies any bowel or bladder dysfunction, saddle anesthesia or any other red flag symptoms. Objective - Exam Physical Examinations : -Constitutiona : Cooperative , not in acute distress . -HEENT : nech : supple , no Lymphadenopathy , normal thyroid size . : eyes : no ptosis , no icterus, no photophobia . - neurologic : Cranial nerve II to XII intact , no focal neurological deffecit . -psychatric : alert , oriented X 3 , appropriate affect , intact judgment and insight . -Lymphatic : no Lymphadenopathy . - musculoskeltal : Lumber spine moter stegnth lower extremities ,thigh and legs 5/5 Right side , 5/5 Left side deep tendon reflexes : normal Knee Jerk , normal ankle Jerk lumber facet Loading Test =positive Right , positive Left Range of motion of the lumbar spine Flexion 30 degrees, extension 10 degrees strait leg raising test = positive at 30 degree Fabere test= positive Right , and positive LT . Sever tenderness over the Sacroiliac joint on the Right , and Left sides Gaenslen test= positive right ,and positive left . Seated flexion test= positive right ,and positive Left . Distraction test= positive bilaterally Sacroiliac compression test= positive bilaterally Assessment and Plan Assessment: Assessment and plan Assessment: Lumbar spondylosis with facet arthropathy without myelopathy Lumbar degenerative disc disease Plan: Patient had success with diagnostic and confirmatory medial branch blocks. Move forward with a right radiofrequency ablation at L4 5 and L5-S1 Dr. Batista was available by phone for consultation during his visit. I have spent 25 minutes on patient care today. The time was used to review the medical records including relevant urine studies and Prescription history (MAPs), review of the available imaging, evaluation and examination of the patient, coordination of care with the medical staff and if applicable referring physicians, as well as creation of the medical record. - PQRS measures = - Patient's medications are documented in the chart. -Tobacco use is negative -Patient's has not received pneumococcal vaccine. -Advanced care planning discussed, patient not eligible. -Opiate contract not signed. -Pain positive and follow-up visit/procedure is scheduled. -Patient's blood pressure measured 128/75 , and documented in the record ,and patient will follow up with the primary care. -Patient was not identified as an unhealthy alcohol user Time with Patient: Less than 30
== END | disposition home or self-care (01) ==
LOC: PNWHC3 10:28
PROVIDERS: ATTEND Student in an Organized Health Care Education/Training Program
DX: M47.896 Other spondylosis, lumbar region (principal); M51.36 Other intervertebral disc degeneration, lumbar region
CPT/HCPCS: 99211

== ENCOUNTER 2021-03-12 10:22 | Day surgery (SDC) | payer MEDICARE, OTHER ==
[2021-03-05 13:29] VITALS: BMI 27.8
[2021-03-12 10:52] VITALS: TEMP 97.9
[2021-03-12] MEDS ORDERED: LACTATED RINGERS 1,000 ML IV ONE (10:53)
[2021-03-12] MEDS ORDERED: fentaNYL (PF) 50 MCG/ML 2 ML AMP ONE (12:01)
[2021-03-12] MEDS ORDERED: MIDAZOLAM 2 MG/2 ML VIAL ONE (12:01)
[2021-03-12] MEDS ORDERED: TRIAMCINOLONE ACETONIDE 40 MG/ML 1 ML VIAL ONE (12:01)
[2021-03-12] MEDS ORDERED: ROPIVACAINE 5MG/ML 20ML VIAL ONE (12:01)
[2021-03-12] MEDS ORDERED: LACTATED RINGERS 1,000 ML IV SCH (12:15)
--- NOTE | 2021-03-12 12:28 | P.PCN ---
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 Procedure: Right side L4-5 radiofrequency thermocoagulation of medial branch under fluoroscopic guidance right side L5-S1 dorsal ramus radiofrequency th ermocoagulation under fluoroscopic guidance Surgeon: Lon Messer Anesthesia: Local: 1% Lidocaine, IV sedation : Midazolam 2 mg, and fentanyl 50 micrograms. Complications: None Estimated blood loss: None. Specimen removed: None Fluoroscopic image: Saved to patient electronic medical records. Indications for Procedure: The patient is well known to pain clinic for his chronic low back pain management. The lumbar facet loading test was positive with a clinical diagnosis of lumbar facet arthropathy. Patient had marked decrease in pain after the diagnostic medial branch procedure. Came here for radiofrequency ablation for longer pain relief. PROCEDURE DESCRIPTION: The patient was seen and identified in the preoperative area. Risks, benefits, complications, and alternatives were discussed with the patient. The patient agreed to proceed with the procedure and signed the consent. IV was started. Vital signs were stable. Patient was taken to the procedure room and timeout was completed. The patient was placed in the prone position on procedure table and a pillow was placed under the abdomen to reduce lumbar lordosis. The lumbosacral area was prepped and draped in the usual sterile fashion. Critical pause was taken. Vital signs were closely monitored during the procedure. The fluoroscopic camera was placed in the anteroposterior position to identify the junction of superior articular process and its corresponding injection with its transverse process of L4, L5, S1, which were anesthetized with 1% lidocaine. We used 18-gauge 100-mm curved, sharp radiofrequency cannula with 10- mm active tip for the procedure. The first cannula was guided by fluoroscopy to the S1 superior articular process and its corresponding junction with its ala. The second cannula was guided by fluoroscopy into the L5 superior articular process and its corresponding junction with its transverse process and pedicle. The third cannula was guided by fluoroscopy into the L4 SAP and its corresponding junction with its transverse process and its pedicle. After confirmation of needle tip position on oblique view, each site underwent motor testing at 2 Hz and 0 to 2.5 volts, and there was good motor stimulation in the back and no radicular symptoms or paresthesias. After confirmation of motor testing, 0.5 mL of block solution injected at each site . Block solution contained 4 mL of 0.5% ropivacaine preservative free mixed with 40 MG of Kenalog. At this time, each site was ablated using continuous radiofrequency mode at 80 degrees Celsius for 90 seconds at each level. At the end of the procedure, each needle was retracted approximately 1 cm and the skin was infiltrated with 0.5% ropivacaine preservative free 1 ml at each site. Skin was cleansed and bandages were applied. Disposition : The patient tolerated the procedure very well. The patient was transferred to the recovery room and remained stable until discharged home. The patient was given detailed discharge instructions for infection, bleeding, and increased pain at the injection site, and was advised to seek immediate medical attention should significant side effects develop. The patient will be scheduled with Pain Clinic within 4 weeks.
[2021-03-12] MEDS ORDERED: IV FLUID CONTINUATION 1,000 ML IV ONE (12:38)
[2021-03-12 12:43] VITALS: BP 137/71; PULSE 75; RESP 16
--- NOTE | 2021-03-12 12:48 | FL ---
EXAMINATION TYPE: FL guided pain mgmt statistic DATE OF EXAM: 03/12/2021 FLUOROSCOPY Fluoroscopy time of 5 seconds was used during lumbar right-sided facet radiofrequency ablation. 3 im age/s document/s the procedure.
== END 2021-03-12 13:03 | disposition home or self-care (01) ==
LOC: ORPAIN 10:22
DX: M47.816 Spondylosis without myelopathy or radiculopathy, lumbar region (principal); G89.29 Other chronic pain; I10 Essential (primary) hypertension; I25.10 Atherosclerotic heart disease of native coronary artery without angina pectoris; Z95.1 Presence of aortocoronary bypass graft; Z98.890 Other specified postprocedural states; Z88.1 Allergy status to other antibiotic agents; Z88.5 Allergy status to narcotic agent; Z88.8 Allergy status to other drugs, medicaments and biological substances; Z79.02 Long term (current) use of antithrombotics/antiplatelets; Z79.82 Long term (current) use of aspirin
CPT/HCPCS: 64635; 64636; J2250; J3301; J3010; J2795; 99152; 99153

== ENCOUNTER → 2021-06-03 | Outpatient (CLI) | payer MEDICARE, OTHER ==
[2021-06-03 10:53] VITALS: BP 141/63; PULSE 73; RESP 18; TEMP 98
--- NOTE | 2021-06-03 10:55 | P.PN ---
Subjective Progress Note Date: 06/03/21 Principal diagnosis: A 81 yr old male with at side with a history of severe and chronic low back pain secondary to lumbar degenerative disc diseases and lumbar spondylosis with facet arthropathy presents today for evaluation status post right lumbar RFA the L4-L5 and L5-S1. Patient states he strays 100% pain relief status post procedure. Pain level is currently at 0 out of 10 in intensity but escalates as high as 5 out of 10 in intensity with bending, lifting and twisting. With activity, lower back pain also occasionally radiates to the lower extremities. Pain is alleviated with medications, topicals, injections, physical therapy in the past, chiropractic treatments in the past, use of a cane, brace walker and wheelchair for ambulation, and rest. Interventional pain procedures completed include right L4-L5, L5-S1 RFA Patient is currently on Tylenol OTC Patient denies any side effects of the medication(s), denies excessive drowsiness or sleepiness, denies suicidal ideation and reports that the current pain medication is helping to control the pain and improve activities of daily living. Patient denies any motor or sensory deficits. Patient denies any fever or night sweats, denies any change in the bowel movements or urination. Physical Examination: -Constitutional: Cooperative. Not in acute distress . -HEENT: Neck is supple. No lymphadenopathy. No thyromegaly. Normal thyroid size. Eyes: No ptosis , no icterus, no photophobia. ENT: No auditory deficits. Normal oropharynx. No Thrush. - Respiratory: Chest clear to auscultations bilaterally. No wheezing. No rhonchi. - Cardiovascular: Regular rate and rhythm. S1 / S2 , no S3 , no S4. - Gastrointestinal: Abdomen soft no tenderness. Bowel sounds positive in all four quadrants. No organomegaly. - Genitourinary: Deferred. - Neurologic: Cranial nerve II to XII intact. No focal neurological deficits. - Psychatric: Alert & oriented x 3. Matching mood & appropriate affect. Judgment and insight intact. - Lymphatic: No Lymphadenopathy. - Musculoskeletal: Cervical spine: Muscle bulk/ tone/ strength in the bilateral upper extremities normal. Facet loading test cervical area positive. Lumbar spine: Motor bulk/ tone/ strength lower extremities , thigh and legs : 5/5 Deep tendon reflexes : Normal Knee Jerk. Normal Ankle Jerk . Vertebral body tenderness to palpation over L5 Lumbar Facet Loading Test positive Straight Leg Raise: positive at 30 degrees right side/ left side Gaenslen's Test positive Sacral spine : Severe tenderness over the Sacroiliac joint: right side / left side Range of motion: Flexion of the lumbar spine <60 degrees Range of motion: Extension of the lumbar spine <20 degrees Gaenslen's Test positive Dyan test: positive right side / left side Assessment and plan: Chronic low back pain secondary to lumbar degenerative disc disease , lumbar spondylosis with facet arthropathy without myelopathy Patient experienced optimal and sufficient pain relief with right L4-L5, L5-S1 RFA. Discussed with patient that he may try conservative treatments if and when pain starts to return. Patient may return to our clinic on an as- needed basis. All patient questions answered MAPS reviewed and it was appropriate. I have spent 31 minutes on patient care today. Dr Batista was available by phone for the evaluation of this patient. The time was used to review the medical records including relevant urine studies and Prescription history (MAPs), review of the available imaging, evaluation and examination of the patient, coordination of care with the medical staff and if applicable referring physicians, as well as creation of the medical record PQRS Measure Charge Sheet Mode of Arrival: Ambulatory, Cane - Pain Location None Non-Pharmacological Interventions: Physical Therapy, Stretching Pharmacological Interventions: Block, PRN Medication, Topical Medication PQRS Narrative: Smoking Status Former smoker Blood Pressure 141/63 Pain Intensity [None] 0 Scale Used Numeric (1 - 10) Hx Alcohol Use (MH) Yes: occ Home Medications: Ambulatory Orders Cholecalciferol [Vitamin D3 (25 Mcg = 1000 Iu)] 2,000 unit PO DAILY 07/03/16 Citalopram Hydrobromide [CeleXA] 20 mg PO DAILY 07/03/16 Clopidogrel [Plavix] 75 mg PO DAILY 07/03/16 Levothyroxine Sodium [Synthroid] 50 mcg PO DAILY 07/03/16 amLODIPine BESYLATE [Norvasc] 10 mg PO DAILY 07/03/16 Famotidine 40 mg PO DAILY 10/17/19 Furosemide [Lasix] 20 mg PO BID 10/17/19 Potassium Chloride ER [K-Dur 20] 20 meq PO DAILY 10/17/19 Rosuvastatin Calcium 20 mg PO SUMOWEFR 10/17/19 Vitamin B Complex/Folic Acid [Vitamin B Complex Tablet] 0.4 mg PO HS 10/17/19 Aspirin EC [Ecotrin Low Dose] 81 mg PO DAILY #30 tablet. 10/19/19 Losartan [Cozaar] 50 mg PO DAILY #30 tab 10/19/19 Thiamine [Vitamin B-1] 100 mg PO DAILY #30 tablet 10/19/19 Allopurinol [Zyloprim] 300 mg PO BID 06/14/20 Metoprolol Succinate [Toprol XL] 100 mg PO DAILY 06/14/20 traMADol HCL [Ultram] 50 mg PO Q6HR PRN 10/23/20 levETIRAcetam [Keppra] 500 mg PO TID 01/23/21
== END | disposition home or self-care (01) ==
LOC: PNWHC3 09:42
PROVIDERS: ATTEND Specialist
DX: M47.896 Other spondylosis, lumbar region (principal); M51.36 Other intervertebral disc degeneration, lumbar region
CPT/HCPCS: 99211

== ENCOUNTER → 2022-05-28 | Outpatient (CLI) | payer MEDICARE, OTHER ==
--- NOTE | 2022-05-29 07:37 | CT ---
EXAMINATION TYPE: CT angio neck DATE OF EXAM: 05/28/2022 HISTORY: carotid stenosis COMPARISON: Carotid ultrasound October 19, 2019 CT DLP: 1038.1 mGycm. Automated Exposure Control for Dose Reduction was Utilized. TECHNIQUE: CTA scan of the head and neck is performed without and with IV Contrast, patient injected with 65ml mL of Isovue 370, axial images are obtained, coronal and sagittal reformatted images are r eviewed. 3D reconstructed images are created on an independent workstation and reviewed. FINDINGS: Carotid/Vascular Structures: Moderate peripheral plaque in the aortic arch. Normal three-vessel origi n. No significant stenosis. Normal origin right common carotid artery from right brachiocephalic candice ry. No significant stenosis along the course of the common carotid arteries. There is significant foc al mixed plaque at the left carotid bulb extending into proximal internal carotid artery causing sign ificant stenosis. Grading of stenosis is difficult due to blooming artifact from calcified plaque and atypical protocol without thinner cuts provided. Stenosis at least 90% is present. Complete occlusio n not entirely excluded though trace patency is likely present. Right carotid bulb shows more moderat e peripheral calcified plaque extending into proximal internal carotid artery without significant tatiana nosis. There is tortuous course to the internal carotid arteries bilaterally with mild to moderate pe ripheral calcified plaque distally. Vertebral arteries are patent to the basilar artery junction. Left vertebral artery is larger caliber dominant. Other: Grade 1 retrolisthesis C5 on C6. Moderate Disc space narrowing C5-C6 and C6-C7 level. There is partial visualization of sternal wires and mediastinal clips. IMPRESSION: Significant stenosis proximal left internal carotid artery estimated 90-99%. Advise direc t catheter angiogram follow-up to further evaluate and/or treat. NASCET criteria was used in interpretation of this exam?
== END | disposition home or self-care (01) ==
LOC: RADCTMAIN 14:07
PROVIDERS: ATTEND Surgery
DX: I65.23 Occlusion and stenosis of bilateral carotid arteries (principal)
CPT/HCPCS: 82565; 84520; 70498; 36415; Q9967

== ENCOUNTER 2022-07-18 05:44 | Inpatient (IN) | payer MEDICARE, OTHER ==
[2022-07-15 16:36] VITALS: BMI 28.1
[2022-07-18] MEDS ORDERED: LACTATED RINGERS 1,000 ML IV SCH (05:54)
[2022-07-18] MEDS ORDERED: ONDANSETRON 4 MG/2 ML VIAL IVP ONE ×2 (05:54→06:50)
[2022-07-18] MEDS ORDERED: DEXAMETHASONE SOD PHOSPHATE 4 MG/ML 1 ML VIAL IV ONE (05:54)
[2022-07-18] MEDS ORDERED: MIDAZOLAM 2 MG/2 ML VIAL IV PRN (05:54)
[2022-07-18] MEDS ORDERED: DEXAMETHASONE SOD PHOSPHATE 4 MG/ML 1 ML VIAL IVP ONE (06:50)
[2022-07-18] MEDS ORDERED: MIDAZOLAM 2 MG/2 ML VIAL IVP ONE (07:01)
[2022-07-18] MEDS ORDERED: NEOSTIGMINE 1 MG/ML 10 ML VIAL ONE (07:26)
[2022-07-18] MEDS ORDERED: fentaNYL (PF) 50 MCG/ML 2 ML AMP ONE (07:26)
[2022-07-18] MEDS ORDERED: GLYCOPYRROLATE 0.2 MG/ML 2 ML VIAL ONE (07:26)
[2022-07-18] MEDS ORDERED: PROPOFOL 10 MG/ML 20 ML VIAL IV ONE (07:26)
[2022-07-18] MEDS ORDERED: LIDOCAINE 2% INJ 20 MG/ML (2 ML VIAL) ONE (07:26)
[2022-07-18] MEDS ORDERED: SUCCINYLCHOLINE CHLORIDE 200 MG/10 ML VIAL IV ONE (07:26)
[2022-07-18] MEDS ORDERED: NITROGLYCERIN-D5W PMX 25 MG/250 ML BTL IV ONE (07:26)
[2022-07-18] MEDS ORDERED: ROCURONIUM 10 MG/ML (5 ML VIAL) IV ONE (07:26)
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
[2022-07-18] MEDS ORDERED: GELATIN SPONGE,ABSORB (LARGE) 1 EACH SPONGE TOPICAL ONE ×2 (08:04→08:57)
[2022-07-18] MEDS ORDERED: THROMBIN (BOVINE) 5,000 UNIT VIAL TOPICAL ONE ×2 (08:04→08:57)
[2022-07-18] MEDS ORDERED: HEPARIN SODIUM (1,000 UNIT/ML) 2,000 UNIT in SODIUM CHLORIDE 0.9% 1,000 ML IRRIGATION ONE (08:05)
[2022-07-18] MEDS ORDERED: ceFAZolin 2,000 MG in SODIUM CHLORIDE 0.9% 500 ML IRRIGATION ONE (08:06)
[2022-07-18] MEDS ORDERED: LIDOCAINE 1% INJ 10MG/ML (20 ML MDV) SQ ONE ×2 (08:07→08:57)
[2022-07-18] MEDS ORDERED: MAG HYDROX/AL HYDROX/SIMETH 30 ML CUP PO PRN (09:15)
[2022-07-18] MEDS ORDERED: BENZOCAINE/MENTHOL LOZENG 1 EACH LOZENGE MUCOUS MEM PRN (09:15)
[2022-07-18] MEDS ORDERED: ACETAMINOPHEN TAB 325 MG TAB PO PRN (09:15)
--- NOTE | 2022-07-18 09:15 | P.OP ---
Description of Procedure: Date of Procedure: 07/18/2022 Preoperative Diagnosis: Left Internal carotid artery stenosis >80% Postoperative Diagnosis: Same Procedure(s) Performed: Left carotid endarterectomy with patch angioplasty Anesthesia: ARNULFOA Surgeon: Robin Black Estimated Blood Loss (ml): 20 IV Fluids: See anesthesia record Urine Output: See anesthesia record Pathology: Carotid plaque Condition: stable Disposition: PACU Indications for Procedure: 82-year-old gentleman with history of falls, previous [facility] will TIA who underwent carotid Doppler and CTA imaging of his neck which demonstrated severe stenosis greater than 80% on the left internal carotid artery at the bifurcation. He presents today for elective carotid endarterectomy and patch angioplasty. Description of Procedure: After written informed consent was obtained the patient all risks benefits and competitions were described the patient is brought to the operative suite and laid in a supine position. The area of the neck was prepped and draped in usual sterile fashion after appropriate anesthetic was performed per the anesthesiologist. A timeout was performed in normal fashion antibiotics were administered prior to incision. An oblique incision was then created just anterior to the sternocleidomastoid musculature with a 10 blade scalpel and dissection was carried down to the carotid sheath. The carotid sheath was then entered after facial vein was located and suture ligated in normal fashion. The common carotid, internal carotid, external carotid and superior thyroid arteries were located and dissected free in a meticulous fashion circumferentially and controlled with vessel loops. Attention was then placed to locating the vagus nerve as well as hypoglossal nerve which were both spared. Once controlled patient was administered heparin and followed with ACTs for appropriate heparinization. Once ACT was above 200 the proximal and distal aspects of the dissection were then controlled with vascular clamps. Arteriotomy was then created with 11 blade scalpel and extended with Hill Chowdary scissors. Utilizing surgical oximetry were obtained and were stable throughout only dropping from 74-70. No shunt was required and endarterectomy was then performed with a [place] and elevator. The plaque was then feathered at the distal aspect and the internal carotid artery and removed. The area was copiously irrigated with heparinized saline and all free debris was removed. A 7-0 Prolene suture was then placed to tack the distal aspect of the dissection at the internal carotid artery. A 0.8 x 8 cm bovine pericardial patch was then chosen and patch angioplasty was performed with 6-0 Prolene suture in a running fashion. Prior to last sutures being placed the inflow was released flushing any free debris out of the patch. This was reclamped and the internal carotid artery was released revealing good brisk flow and was once again reclamped. The external carotid and superior thyroid artery were then released followed by the common carotid artery to allow any free debris to be flushed into the external system. Final sutures were placed and secured. Internal carotid artery control was then released. Good pulsatile flow was noted through the patch and a Doppler was utilized demonstrating good brisk flow into the internal, external carotid arteries without any signs of obstruction. Hemostasis was then assured with Gelfoam thrombin. A 10-Burmese BRIAN drain was then placed in normal fashion and secured with 3-0 nylon suture. The incision was then closed in a multilayer fashion after hemostasis was assured. The skin was then cleansed and dressings were placed. Patient tolerated the procedure well and was following commands and moving all extremities. Patient was then sent to PACU for recovery.
[2022-07-18] MEDS ORDERED: NITROGLYCERIN-D5W PMX 50 MG in DEXTROSE/WATER 1 250ML.BAG IV ONE ×8 (09:26)
[2022-07-18] MEDS: fentaNYL (PF) 50 MCG/ML 2 ML AMP IV PRN ×2 (11:38→13:57)
[2022-07-18 16:13] LABS: Basophils % (A) 0 %; Eosinophils % (A) 0 %; HGB 13.5 gm/dL (13.0-17.5); Lymphocytes # (A) 0.8 k/uL (1.0-4.8); Lymphocytes % (A) 9 %; MCH 33.8 pg (25.0-35.0); MCHC 33.8 g/dL (31.0-37.0); Mean Platelet Volume 8.1; Monocytes # (A) 0.2 k/uL (0-1.0); Monocytes % (A) 3 %; Neutrophils % (A) 88 %; Platelet Count 145 k/uL (150-450); RDW 13.1 % (11.5-15.5); WBC 9.1 k/uL (3.8-10.6)
[2022-07-18] MEDS: HEPARIN SODIUM,PORCINE/PF 5,000 UNIT/0.5 ML SYRINGE SQ SCH (19:37)
[2022-07-18] MEDS ORDERED: traMADol 50 MG TAB PO PRN (20:34)
[2022-07-18] MEDS: FUROSEMIDE 20 MG TAB PO SCH (20:45)
[2022-07-18] MEDS: allopurinoL 300 MG TAB PO SCH (20:45)
[2022-07-18] MEDS ORDERED: ATORVASTATIN 40 MG TAB PO SCH (21:00)
[2022-07-19] MEDS ORDERED: LEVOTHYROXINE 50 MCG TAB PO SCH (06:30)
[2022-07-19] MEDS ORDERED: SILVER NITRATE APPLICATOR 1 EACH STICK..EA. TOPICAL ONE (07:45)
[2022-07-19 07:46] VITALS: BP 157/77; PULSE 82; RESP 18; TEMP 98.3
[2022-07-19] MEDS ORDERED: TAMSULOSIN 0.4 MG CAP.ER.24H PO STA (07:55)
--- NOTE | 2022-07-19 08:03 | P.PN ---
Subjective Progress Note Date: 07/19/22 Principal diagnosis: carotid stenosis Patient seen and evaluated after left carotid endarterectomy. Overnight patient pulled out drain. Small hematoma noted per nursing but no increase in size from yesterday. Patient denies any lateralizing symptoms such as weakness, vision c hanges or speech issues. Per nursing he had urinary retention and needed to be cathed with >500cc output. He has urinated since but very small amounts. He states having issues with urination prior but hasn't seen a urologist. He denies any other issues and wants to go home. Objective - Vital Signs Vital signs: Vital Signs Temp 98.3 F 07/19/22 07:46 Pulse 82 07/19/22 07:46 Resp 18 07/19/22 07:46 BP 157/77 07/19/22 07:46 Pulse Ox 96 07/19/22 07:46 FiO2 Intake & Output 07/18/22 07/19/22 07/19/22 18:59 06:59 18:59 Intake Total 1103 540 Output Total 425 950 Balance 678 -410 Intake: IV 903 Intake, IV Titration 20 Amount Lactated Ringers 1,000 ml 20 @ 20 mls/hr IV .Q24H JUAN Rx#:[id number] Oral 180 540 Output: Drainage 30 50 Left Neck 30 50 Urine 375 900 Straight 450 Estimated Blood Loss 20 Other: Voiding Method Toilet # Voids 200 - Exam left neck incision with a small area of ooze at the skin. Drain site is dry. Small hematoma noted at the incision site but stable. Minimal tenderness to palpation. No facial droop. Tongue is midline. Muscle strength equal bilaterally. - Labs CBC & Chem 7: 07/18/22 15:51 Labs: Abnormal Lab Results - Last 24 Hours (Table) 07/18/22 Range/Units 15:51 RBC 4.00 L (4.30-5.90) m/uL Plt Count 145 L (150-450) k/uL Neutrophils # 8.0 H (1.3-7.7) k/uL Lymphocytes # 0.8 L (1.0-4.8) k/uL Assessment and Plan Assessment: Left carotid stenosis greater than 80% POD 1 left carotid endartectomy Urinary retention Morbid obesity History of falls Plan: Flomax ordered-continue as outpatient until follow up. Increase activity- ambulate in hallway today. Ok for discharge home if stable per medical team.
--- NOTE | 2022-07-19 08:27 | P.DS ---
Providers Date of admission: 07/18/22 05:44 Expected date of discharge: 07/19/22 Attending physician: Robin Black DO Consults: 07/18/22 09:21 Consult Physician Routine Consulting Provider: Noel Riojas Reason/Comments: medical management Do you want consulting provider notified?: Yes Primary care physician: [facility] Course: Underwent carotid endarterectomy 07/18/22. Did well, had some urinary retention which require straight cath. Pain controlled, ambulating, and stable for discharge the following day. Assessment: left carotid stenosis urinary retention Procedures: left carotid endarterectomy Patient Condition at Discharge: Good Plan - Discharge Summary Discharge Rx Participant: Yes New Discharge Prescriptions: No Action Clopidogrel [Plavix] 75 mg PO DAILY Levothyroxine Sodium [Synthroid] 50 mcg PO QAM Citalopram Hydrobromide [CeleXA] 25 mg PO QAM Cholecalciferol [Vitamin D3 (25 Mcg = 1000 Iu)] 2,000 unit PO DAILY amLODIPine BESYLATE [Norvasc] 10 mg PO QAM Famotidine 40 mg PO QAM Furosemide [Lasix] 20 mg PO BID Rosuvastatin Calcium 20 mg PO SUMOWEFR Vitamin B Complex/Folic Acid [Vitamin B Complex Tablet] 0.4 mg PO HS Aspirin EC [Ecotrin Low Dose] 81 mg PO DAILY #30 tablet. Thiamine [Vitamin B-1] 100 mg PO DAILY #30 tablet Metoprolol Succinate [Toprol XL] 100 mg PO QAM allopurinoL [Zyloprim] 300 mg PO BID levETIRAcetam [Keppra] 750 mg PO BID Losartan [Cozaar] 100 mg PO DAILY Potassium Chloride [K-Tab ER] 20 meq PO DAILY traMADol HCL [Ultram] 50 mg PO Q6HR PRN PRN Reason: Pain Tamsulosin [Flomax] 0.4 mg PO DAILY Discharge Medication List Cholecalciferol [Vitamin D3 (25 Mcg = 1000 Iu)] 2,000 unit PO DAILY 07/03/16 [History] Citalopram Hydrobromide [CeleXA] 25 mg PO QAM 07/03/16 [History] Clopidogrel [Plavix] 75 mg PO DAILY 07/03/16 [History] Levothyroxine Sodium [Synthroid] 50 mcg PO QAM 07/03/16 [History] amLODIPine BESYLATE [Norvasc] 10 mg PO QAM 07/03/16 [History] Famotidine 40 mg PO QAM 10/17/19 [History] Furosemide [Lasix] 20 mg PO BID 10/17/19 [History] Rosuvastatin Calcium 20 mg PO SUMOWEFR 10/17/19 [History] Vitamin B Complex/Folic Acid [Vitamin B Complex Tablet] 0.4 mg PO HS 10/17/19 [History] Aspirin EC [Ecotrin Low Dose] 81 mg PO DAILY #30 tablet. 10/19/19 [Rx] Thiamine [Vitamin B-1] 100 mg PO DAILY #30 tablet 10/19/19 [Rx] Metoprolol Succinate [Toprol XL] 100 mg PO QAM 06/14/20 [History] allopurinoL [Zyloprim] 300 mg PO BID 06/14/20 [History] traMADol HCL [Ultram] 50 mg PO Q6HR PRN 10/23/20 [History] Losartan [Cozaar] 100 mg PO DAILY 07/15/22 [History] Potassium Chloride [K-Tab ER] 20 meq PO DAILY 07/15/22 [History] levETIRAcetam [Keppra] 750 mg PO BID 07/15/22 [History] Tamsulosin [Flomax] 0.4 mg PO DAILY 07/19/22 [History] Follow up Appointment(s)/Referral(s): Robin Black DO [STAFF PHYSICIAN] - 2 Weeks Patient Instructions/Handouts: Carotid Endarterectomy (DC) Activity/Diet/Wound Care/Special Instructions: No lifting greater than 15 lbs Ok to shower. Keep incision site dry. Discharge Disposition: HOME SELF-CARE
[2022-07-19] MEDS ORDERED: FAMOTIDINE 20 MG TAB PO SCH (09:00)
[2022-07-19] MEDS ORDERED: THIAMINE 100 MG TAB PO SCH (09:00)
[2022-07-19] MEDS ORDERED: CITALOPRAM HYDROBROMIDE 10 MG TAB PO SCH (09:00)
[2022-07-19] MEDS ORDERED: CLOPIDOGREL 75 MG TAB PO SCH (09:00)
[2022-07-19] MEDS ORDERED: ASPIRIN 81 MG PO SCH (09:00)
[2022-07-19] MEDS ORDERED: CHOLECALCIFEROL 25 MCG (1000 IU) TABLET PO SCH (09:00)
[2022-07-19] MEDS ORDERED: METOPROLOL SUCCINATE (ER) 100 MG TAB.ER.24H PO SCH (09:00)
[2022-07-19 09:03] LABS: HCT 37.5 % (39.0-53.0); HGB 13.1 gm/dL (13.0-17.5); MCV 100.3 fL (80.0-100.0); Mean Platelet Volume 7.9; Platelet Count 164 k/uL (150-450); RBC 3.74 m/uL (4.30-5.90); RDW 13.2 % (11.5-15.5); WBC 9.1 k/uL (3.8-10.6)
[2022-07-19] MEDS: FUROSEMIDE 20 MG TAB PO SCH (09:20)
[2022-07-19] MEDS: allopurinoL 300 MG TAB PO SCH (09:20)
[2022-07-19] MEDS: HEPARIN SODIUM,PORCINE/PF 5,000 UNIT/0.5 ML SYRINGE SQ SCH (09:21)
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
== END 2022-07-19 14:08 | disposition home or self-care (01) | DRG 39 ==
LOC: 2ORMAIN 05:44 → 3SCARD 15:02
PROVIDERS: ADMIT Surgery; ATTEND Surgery
PROC: 03UL0JZ Supplement Left Internal Carotid Artery with Synthetic Substitute, Open Approach (ICD-10-PCS; principal; 2022-07-18 07:30)
PROC: 03CL0ZZ Extirpation of Matter from Left Internal Carotid Artery, Open Approach (ICD-10-PCS; principal; 2022-07-18 07:30)
DX: I65.23 Occlusion and stenosis of bilateral carotid arteries (principal); S10.83XA Contusion of other specified part of neck, initial encounter; Y92.238 Other place in hospital as the place of occurrence of the external cause; G40.909 Epilepsy, unspecified, not intractable, without status epilepticus; R33.9 Retention of urine, unspecified; K21.9 Gastro-esophageal reflux disease without esophagitis; I25.10 Atherosclerotic heart disease of native coronary artery without angina pectoris; E78.5 Hyperlipidemia, unspecified; E03.9 Hypothyroidism, unspecified; M10.9 Gout, unspecified; G89.29 Other chronic pain; M54.9 Dorsalgia, unspecified; M48.061 Spinal stenosis, lumbar region without neurogenic claudication; M19.90 Unspecified osteoarthritis, unspecified site; N28.9 Disorder of kidney and ureter, unspecified; R29.6 Repeated falls; L90.5 Scar conditions and fibrosis of skin; T30.0 Burn of unspecified body region, unspecified degree; I10 Essential (primary) hypertension; R73.03 Prediabetes; I25.2 Old myocardial infarction; F17.220 Nicotine dependence, chewing tobacco, uncomplicated; Z79.82 Long term (current) use of aspirin; Z79.02 Long term (current) use of antithrombotics/antiplatelets; Z79.890 Hormone replacement therapy; Z79.899 Other long term (current) drug therapy; Z95.1 Presence of aortocoronary bypass graft; Z91.81 History of falling; Z89.021 Acquired absence of right finger(s); Z85.828 Personal history of other malignant neoplasm of skin; Z96.641 Presence of right artificial hip joint; Z88.5 Allergy status to narcotic agent; Z88.1 Allergy status to other antibiotic agents; Z88.8 Allergy status to other drugs, medicaments and biological substances
CPT/HCPCS: 36415; 85025; 85027; 86850; 86900; 86901; 88304; 88311

== ENCOUNTER 2022-09-30 23:27 | Inpatient (IN) | payer MEDICARE, OTHER ==
[2022-10-01 01:37] LABS: Basophils % (A) 0 %; Eosinophils # (A) 0.2 k/uL (0-0.7); Eosinophils % (A) 2 %; HCT 30.9 % (39.0-53.0); HGB 10.8 gm/dL (13.0-17.5); Lymphocytes # (A) 1.2 k/uL (1.0-4.8); Lymphocytes % (A) 11 %; MCH 35.5 pg (25.0-35.0); MCHC 34.9 g/dL (31.0-37.0); MCV 101.8 fL (80.0-100.0); Macrocytosis Slight; Mean Platelet Volume 8.4; Monocytes # (A) 0.6 k/uL (0-1.0); Monocytes % (A) 5 %; Neutrophils # (A) 9.5 k/uL (1.3-7.7); Neutrophils % (A) 81 %; Platelet Count 131 k/uL (150-450); RBC 3.03 m/uL (4.30-5.90); RDW 13.7 % (11.5-15.5); WBC 11.7 k/uL (3.8-10.6)
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
[2022-10-01] MEDS ORDERED: NALOXONE 0.4 MG/ML 1 ML VIAL IV PRN (03:28)
[2022-10-01] MEDS ORDERED: PANTOPRAZOLE 40 MG/10 ML VIAL IV SCH (09:00)
[2022-10-01 10:06] LABS: ALT 14 U/L (4-49); AST 21 U/L (17-59); African American GFR (CKD) 48 (>60 ml/min/1.73 sqM); Albumin 3.2 g/dL (3.5-5.0); Alkaline Phosphatase 77 U/L (38-126); Anion Gap 6 mmol/L; Blood Urea Nitrogen 35 mg/dL (9-20); Calcium 8.5 mg/dL (8.4-10.2); Carbon Dioxide 21 mmol/L (22-30); Chloride 106 mmol/L (98-107); Glucose 92 mg/dL (74-99); Non-African American GFR(CKD) 42 (>60 ml/min/1.73 sqM); Potassium 4.3 mmol/L (3.5-5.1); Sodium 133 mmol/L (137-145); Total Bilirubin 0.7 mg/dL (0.2-1.3); Total Protein 5.3 g/dL (6.3-8.2)
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
[2022-10-01] MEDS ORDERED: PROPOFOL 10 MG/ML 20 ML VIAL IV ONE (13:29)
[2022-10-01] MEDS ORDERED: LIDOCAINE 2% INJ 20 MG/ML (2 ML VIAL) ONE (13:29)
[2022-10-01] MEDS ORDERED: IV FLUID CONTINUATION 1,000 ML IV ONE (13:32)
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
--- NOTE | 2022-10-01 13:40 | P.PCN ---
Date of Procedure: 10/01/22 Procedure(s) Performed: BRIEF HISTORY: Patient is a 82-year-old, pleasant, white male scheduled for an upper endoscopy as a part of evaluation of acute GI bleed. He presents to the hospital with falls and while he was in the emergency room esophagus hospital last night he had few episodes of black tarry stools. Hemoglobin is 10.5 g/dL. His and scheduled for an upper endoscopy to evaluate further.. Patient has history of coronary artery disease and has been on aspirin and Plavix the last dose was yesterday. PROCEDURE PERFORMED: Esophagogastroduodenoscopy with biopsy. PREOPERATIVE DIAGNOSIS: Acute GI bleed. IV sedation per anesthesia. PROCEDURE: After informed consent was obtained, the patient was brought into the endoscopy unit. IV sedation was administered by Anesthesia under continuous monitoring. Initially the Olympus GIF-140 video endoscope was inserted into the mouth. Esophagus intubated without any difficulty. It was gradually advanced into the stomach and duodenum and carefully examined. The bulb of the duodenum appeared normal. The second part of the duodenum there were multiple superficial ulcerations measuring between 1-2 cm in size some erythema noted but no active bleeding. The scope at this time was withdrawn to the stomach, adequately insufflated with air, and upon careful examination, mucosa of the antrum, had scattered erosions and biopsies were done from this area. Mucosa of the body, cardia and the fundus appeared normal. The scope was then withdrawn i nto the esophagus. The GE junction was located at 39 cm from the incisors. The esophagus appeared normal. There were no erosions or ulcerations seen and the patient tolerated the procedure well. IMPRESSION: 1. Multiple superficial duodenal ulcers measuring between 1-2 cm in the second part of the duodenum with no active bleeding. 2. Antral erosive gastritis. RECOMMENDATIONS: The findings of this examination were discussed with the patient as well as his family. He will continue on Protonix 40 mg twice daily. Start him on clear liquid diet and monitor CBC every 12 hours. Hold aspirin and Plavix for now.
[2022-10-01] MEDS ORDERED: LOSARTAN 50 MG TAB PO STA (16:24)
[2022-10-01] MEDS ORDERED: METOPROLOL TARTRATE 50 MG TAB PO STA (16:24)
[2022-10-01] MEDS ORDERED: amLODIPine 10 MG TAB PO STA (16:24)
[2022-10-01] MEDS: traMADol 50 MG TAB PO PRN (16:34)
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
[2022-10-01] MEDS: ATORVASTATIN 40 MG TAB PO SCH (19:51)
[2022-10-01] MEDS: HYDROmorphone 0.5 MG/0.5 ML SYRINGE IVP PRN (19:51)
[2022-10-01] MEDS: PANTOPRAZOLE 40 MG/10 ML VIAL IV SCH (19:51)
[2022-10-01] MEDS ORDERED: NON FORMULARY DRUG (Vitamin B Complex/Folic Acid [Vitamin B Complex Tablet] 0.4 MG Tablet) PO SCH (21:00)
[2022-10-02] MEDS: SODIUM CHLORIDE 0.9% 1,000 ML IV SCH ×3 (06:16→17:02)
[2022-10-02] MEDS: LEVOTHYROXINE 50 MCG TAB PO SCH (06:16)
[2022-10-02] MEDS: LOSARTAN 50 MG TAB PO SCH (08:09)
[2022-10-02] MEDS: THIAMINE 100 MG TAB PO SCH (08:10)
[2022-10-02] MEDS: CITALOPRAM HYDROBROMIDE 20 MG TAB PO SCH (08:10)
[2022-10-02] MEDS: amLODIPine 10 MG TAB PO SCH (08:10)
[2022-10-02] MEDS: PANTOPRAZOLE 40 MG/10 ML VIAL IV SCH ×2 (08:10→20:24)
[2022-10-02] MEDS: METOPROLOL SUCCINATE (ER) 100 MG TAB.ER.24H PO SCH (08:10)
[2022-10-02 08:27] LABS: Basophils % (A) 0 %; Eosinophils # (A) 0.5 k/uL (0-0.7); Eosinophils % (A) 6 %; HCT 28.6 % (39.0-53.0); HGB 9.5 gm/dL (13.0-17.5); Lymphocytes # (A) 1.5 k/uL (1.0-4.8); Lymphocytes % (A) 21 %; MCH 34.2 pg (25.0-35.0); MCHC 33.1 g/dL (31.0-37.0); MCV 103.3 fL (80.0-100.0); Macrocytosis Slight; Mean Platelet Volume 8.7; Monocytes # (A) 0.4 k/uL (0-1.0); Monocytes % (A) 6 %; Neutrophils # (A) 4.8 k/uL (1.3-7.7); Neutrophils % (A) 65 %; Platelet Count 157 k/uL (150-450); RBC 2.77 m/uL (4.30-5.90); WBC 7.4 k/uL (3.8-10.6)
[2022-10-02 08:52] LABS: Potassium 4.2 mmol/L (3.5-5.1)
[2022-10-02 08:53] LABS: African American GFR (CKD) 63 (>60 ml/min/1.73 sqM); Anion Gap 8 mmol/L; Blood Urea Nitrogen 22 mg/dL (9-20); Calcium 8.4 mg/dL (8.4-10.2); Carbon Dioxide 20 mmol/L (22-30); Chloride 105 mmol/L (98-107); Glucose 93 mg/dL (74-99); Non-African American GFR(CKD) 55 (>60 ml/min/1.73 sqM); Sodium 133 mmol/L (137-145)
[2022-10-02] MEDS: traMADol 50 MG TAB PO PRN (12:05)
[2022-10-02] MEDS ORDERED: HYDROcodone/APAP 5-325MG 1 EACH TAB PO PRN (12:41)
--- NOTE | 2022-10-02 12:46 | P.PN ---
Subjective Progress Note Date: 10/02/22 CHIEF COMPLAINT: Left-sided rib pain HISTORY OF PRESENT ILLNESS: Patient continues to complain of left-sided rib pain. Reports pain is worse with movement. He does report pain with taking a deep breath. He had EGD completed with GI service which did reveal duodenal ulcers and erosive esophagitis. Patient reports no further black stools. Patient is on room air satting at 96%. Afebrile. WBC 7.4 Hgb 9.5 PHYSICAL EXAM: VITAL SIGNS: Reviewed. GENERAL: Well-developed in no acute distress. Chest: Bruising along the left rib cage. Tender with palpation. ABDOMEN: Soft. Nondistended. Patient has bruising along the lower left flank. Area is soft. Mild tenderness. NEUROLOGIC: Alert and oriented. Cranial nerves II through XII grossly intact. ASSESSMENT: 1. Fall with trauma to the left rib cage. 2. Multiple rib fractures. 3. Bruising along the left flank 4. Duodenal ulcers and erosive esophagitis PLAN: -Check a follow-up chest x-ray -Encouraged patient to use incentive spirometer -Continue pain management -Consult PT, OT -Continue PPI -Continue to hold Plavix and aspirin Physician Technical Research Scientist note has been reviewed by physician. Signing provider agrees with the documented findings, assessment, and plan of care. I have personally seen and examined the patient, reviewed the CRIME VICTIM SPECIALIST /PAs history, exam and MDM and agree with the assessment and plan as written. Based on total visit time, I have performed more than 50% of the visit. As above: Patient feels better today. EGD results noted. Continue antiacids. Continue diet. Hold anticoagulation Objective - Vital Signs Vital signs: Vital Signs Temp 97.8 F 10/02/22 08:09 Pulse 80 10/02/22 08:09 Resp 18 10/02/22 08:09 BP 155/73 10/02/22 08:09 Pulse Ox 96 10/02/22 08:09 FiO2 Intake & Output 10/01/22 10/02/22 10/02/22 18:59 06:59 18:59 Intake Total 580 540 240 Output Total 400 400 400 Balance 180 140 -160 Intake: IV 400 Oral 180 540 240 Output: Urine 400 400 400 Other: Voiding Method Urinal Urinal # Voids 1 - Labs CBC & Chem 7: 10/02/22 07:14 10/02/22 07:14 Labs: Abnormal Lab Results - Last 24 Hours (Table) 10/02/22 10/02/22 Range/Units 07:14 07:14 RBC 2.77 L (4.30-5.90) m/uL Hgb 9.5 L (13.0-17.5) gm/dL Hct 28.6 L (39.0-53.0) % MCV 103.3 H (80.0-100.0) fL Sodium 133 L (137-145) mmol/L Carbon Dioxide 20 L (22-30) mmol/L BUN 22 H (9-20) mg/dL
--- NOTE | 2022-10-02 12:51 | P.PN ---
Subjective Progress Note Date: 10/02/22 Principal diagnosis: GI bleed This is a pleasant 82-year-old male with past medical history including GERD, hyperlipidemia, hypertension, coronary artery disease status post CABG and stents, skin cancer, seizure disorder, and carotid disease status post left carotid endarterectomy who presented to the emergency department as a transfer from [facility] for recent multiple falls status post a left rib fractures and GI bleed. Patient states he's had multiple falls over the last week he was seen by his PCP last week and was told he had fractured ribs. He had another fall yesterday after he blacked out and became unresponsive, his called EMS and he went to [facility] for further evaluation. During at which that time was documented that he had 3 bloody bowel movements which the patient states for maroon. He was transferred here for GI services and trauma services. Gastroenterology was consulted for GI bleed. Patient states he has no previous history of GI bleed. He is on aspirin and Plavix last taken yesterday. He denies any abdominal pain but of of course has left rib pain. He had a CT of the chest reporting to her tinnitus versus peptic ulcer disease versus trauma of the proximal duodenum. His last EGD was in [address] Marin at which that time he also had a colonoscopy. Findings were antral gastritis, hiatal hernia and esophagitis. Colonoscopy was significant for polyp status post polypectomy. He again underwent a colonoscopy 10/06/[address] Gaston significant for colon polyp. 10/02/2022 Patient seen and examined today as follow-up. He denies any abdominal pain, nausea or vomiting. Yesterday he underwent upper endoscopy with findings of multiple small superficial duodenal ulcers with no active bleeding. Antral erosive gastritis. Patient started on Protonix 40 mg twice a day. Repeat hemoglobin today 9.5, repeat BUN 22 down from 35. He denies any bowel movements today. Objective - Vital Signs Vital signs: Vital Signs Temp 97.8 F 10/02/22 08:09 Pulse 80 10/02/22 08:09 Resp 18 10/02/22 08:09 BP 155/73 10/02/22 08:09 Pulse Ox 96 10/02/22 08:09 FiO2 Intake & Output 10/01/22 10/02/22 10/02/22 18:59 06:59 18:59 Intake Total 580 540 240 Output Total 400 400 Balance 180 140 240 Intake: IV 400 Oral 180 540 240 Output: Urine 400 400 Other: Voiding Method Urinal # Voids 1 - Exam General appearance: The patient is alert, oriented, appears in no acute distress. HET: Head is normocephalic and atraumatic. Conjunctiva pink. Sclera anicteric. Neck: Supple without lymphadenopathy. Abdomen: Soft, nontender other than left ribs, nondistended. No guarding or rigidity. Extremities: Normal skin color and turgor. No pedal edema Skin: No rashes, no jaundice. Left flank ecchymosis. Neurological: No focal deficits. Alert and oriented. - Labs CBC & Chem 7: 10/02/22 07:14 10/02/22 07:14 Labs: Abnormal Lab Results - Last 24 Hours (Table) 10/01/22 10/02/22 10/02/22 Range/Units 09:37 07:14 07:14 RBC 2.77 L (4.30-5.90) m/uL Hgb 9.5 L (13.0-17.5) gm/dL Hct 28.6 L (39.0-53.0) % MCV 103.3 H (80.0-100.0) fL Sodium 133 L 133 L (137-145) mmol/L Carbon Dioxide 21 L 20 L (22-30) mmol/L BUN 35 H 22 H (9-20) mg/dL Creatinine 1.53 H (0.66-1.25) mg/dL Total Protein 5.3 L (6.3-8.2) g/dL Albumin 3.2 L (3.5-5.0) g/dL Assessment and Plan (1) GI bleed Narrative/Plan: 82-year-old male transferred from [facility] after sustaining a fall and then having noted.-colored stools. Patient is on aspirin and Plavix for carotid disease status post carotid endarterectomy and history of coronary artery disease status post CABG and stenting. Patient denies previous history of GI bleed. States that he had at least 3 bowel movements that were maroon in color at [facility] clinic at here. Denies any abdominal pain, nausea or vomiting. Previous colonoscopy in 2018 significant for colon polyps as well as in 2017. EGD last done in 2017 with findings of antral gastritis, hiatal hernia and esophagitis. Hemoglobin stable at 10.8. Patient did have imaging done at [facility] with a CT that chest that had showed duodenitis versus peptic ulcer disease versus trauma at the proximal duodenum. We'll plan to proceed with upper endoscopy today. Patient agreeable. The patient underwent upper endoscopy with findings of multiple superficial duodenal ulcers without any active bleeding and gastritis. Discussed with patient will continue Protonix twice a day. No further endoscopic evaluation at this time. Current Visit: Yes Status: Acute Code(s): K92.2 - GASTROINTESTINAL HEMORRHAGE, UNSPECIFIED SNOMED Code(s): 54952377 (2) Fall Current Visit: Yes Status: Acute Code(s): W19.XXXA - UNSPECIFIED FALL, INITIAL ENCOUNTER SNOMED Code(s): 9214037 (3) Multiple rib fractures Current Visit: Yes Status: Acute Code(s): S22.49XA - MULTIPLE FRACTURES OF RIBS, UNSP SIDE, INIT FOR CLOS FX SNOMED Code(s): 1594348 Plan: 1. Continue symptomatic and supportive care 2. Advance to heart healthy diet 3. Hold aspirin and Plavix for another 1-2 days 4. Increase Protonix to 40 mg twice a day 5. Patient is status post upper endoscopy with findings of multiple superficial duodenal ulcers without any evidence of active bleeding. No plans on any further endoscopic evaluation. Thank you for this consultation, patient is cleared from gastroenterology for discharge. Follow-up in 2-[address] Elliott Miranda I agree with the dictator's note, documented as a scribe by Tamra Mejia.
[2022-10-02] MEDS: diphenhydrAMINE 25 MG CAP PO PRN ×2 (13:24→22:50)
--- NOTE | 2022-10-02 15:14 | XR ---
EXAMINATION TYPE: XR chest 2V DATE OF EXAM: 10/02/2022 COMPARISON: CT 09/30/2022 HISTORY: 82-year-old male follow-up rib fractures, shortness of breath TECHNIQUE: AP and lateral views FINDINGS: Median sternotomy wires with postsurgical clips in the mediastinum. Heart borderline enlarged. Large patient body habitus results in hazy lung densities limiting the evaluation. On the lateral view, the re is a small left effusion with adjacent opacity. No appreciable pneumothorax. No obvious interval d isplaced rib fracture on either side. IMPRESSION: Small left pleural effusion remains with adjacent atelectasis and/or consolidation. No obvious interv al displacement of the patient's left-sided rib fractures. Not optimally assessed on this chest expos ure.
--- NOTE | 2022-10-02 16:34 | P.PN ---
Subjective Progress Note Date: 10/02/22 H&P Date: 10/01/22 This is a pleasant 82-year-old gentleman transferred from [facility] secondary to multiple recent falls sustaining left rib fractures and GI bleed in a patient with past medical history significant for skin cancer, gastroesophageal reflux disease, hypertension, hyperlipidemia, CAD status post CABG and stents,Seizure disorder, recent left carotid endarterectomy 07/18/2022- discharged on Plavix and aspirin. Reports yesterday was his third fall, passed out, unresponsive, called EMS and patient was transported to the hospital. While at [facility] patient began having multiple bloody bowel movements and patient was transferred to [facility] for GI and trauma evaluation/tx. Complains of left rib pain. Denies abdominal pain. Denies chest pain, palpitations. [facility] evaluation/radiology studies as per ER review ,stating brain CT reported no evidence of acute transcortical infarctions recent intracranial hemorrhage or hydrocephalus, chest CT demonstrated dependent left lower lobe atelectasis and trace effusion. Age indeterminate nondisplaced left anterior fourth through eighth rib deformities possibly acute.CT of the abdomen and pelvis and inserted additional left posterior lateral eighth through 11th ribs. Duodenitis versus peptic ulcer versus trauma of the proximal duodenum. CT of the cervical spine did not demonstrate any acute cervical fractures. Hemoglobin 10.8, platelets 131, BMP pending. Maintaining O2 sats in the 90s on room air. 10/02/2022 completed EGD reporting antral erosive gastritis with multiple superficial duodenal ulcers 1-2 cm, no active bleeding. Aspirin and Plavix to remain on hold for a couple more days. Continues on PPI. Denies bowel movement today. No further bleeding reported. Denies nausea vomiting or abdominal pain. Hemoglobin 9.5, platelets 157 . Renal function improving, BUN 22, creatinine 1.23 .Afebrile, WBC has normalized. Maintaining O2 sats in the mid to high 90s on room air. Objective - Vital Signs Vital signs: Vital Signs Temp 97.8 F 10/02/22 08:09 Pulse 80 10/02/22 08:09 Resp 18 10/02/22 08:09 BP 155/73 10/02/22 08:09 Pulse Ox 96 10/02/22 08:09 FiO2 Intake & Output 10/01/22 10/02/22 10/02/22 18:59 06:59 18:59 Intake Total 580 540 240 Output Total 400 400 Balance 180 140 240 Intake: IV 400 Oral 180 540 240 Output: Urine 400 400 Other: Voiding Method Urinal # Voids 1 - Exam PHYSICAL EXAM: VITAL SIGNS: [As above] GENERAL: Alert and oriented 3,Sitting up in bed, no acute distress HEENT: Normocephalic , right forehead abrasion ,Conjunctivae normal. eyes normal. NECK: Supple, No JVD. CARDIOVASCULAR: S1, S2 regular. No murmur RESPIRATION: Unlabored, Breath sounds diminished in the bases. ABDOMEN: Soft, nondistended, nontender with the exception of left ribcage with ecchymosis.No guarding. No rigidity .Positive Bowel sounds. LEGS: No edema. no swelling NERVOUS SYSTEM: Cranial N 2-12 grossly normal. No focal deficits. Strength and sensation grossly intact. Skin: Warm and dry, no rash - Labs CBC & Chem 7: 10/02/22 07:14 10/02/22 07:14 Labs: Abnormal Lab Results - Last 24 Hours (Table) 10/01/22 10/02/22 Range/Units 09:37 07:14 RBC 2.77 L (4.30-5.90) m/uL Hgb 9.5 L (13.0-17.5) gm/dL Hct 28.6 L (39.0-53.0) % MCV 103.3 H (80.0-100.0) fL Sodium 133 L (137-145) mmol/L Carbon Dioxide 21 L (22-30) mmol/L BUN 35 H (9-20) mg/dL Creatinine 1.53 H (0.66-1.25) mg/dL Total Protein 5.3 L (6.3-8.2) g/dL Albumin 3.2 L (3.5-5.0) g/dL Assessment and Plan Assessment: Multiple falls, multiple rib fractures-Left posterior lateral eighth through 11th rib fractures. GI bleed.status post EGD, reporting multiple superficial duodenal ulcers without any evidence of active bleeding. Duodenitis versus peptic ulcer versus trauma of the proximal duodenum noted on CT Recent left carotid endarterectomy CAD, history of CABG and stents Hypertension Hyperlipidemia Seizure disorder Gastroesophageal reflux disease Plan: Continue on current medication regime ,monitoring and symptomatic treatment. Diet advanced. PPI twice a day, continue holding Plavix and aspirin for a couple more days as per GI. Aggressive pulmonary toileting with incentive spirometer reinforced. Chest x-ray ordered .Pain management. Close monitoring of hemoglobin, renal function, electrolytes with repeat labs ordered for a.m. The impression and plan of care has been dictated as directed. : I performed a history and examination of this patient, discussed the same with the dictator. I agree with the dictator's note ,documented as a scribe. Any additional findings or plans will be noted.
[2022-10-02] MEDS: ATORVASTATIN 40 MG TAB PO SCH (20:24)
[2022-10-02] MEDS: HYDROmorphone 0.5 MG/0.5 ML SYRINGE IVP PRN (20:25)
[2022-10-03 06:32] VITALS: TEMP 98.3
[2022-10-03] MEDS: LEVOTHYROXINE 50 MCG TAB PO SCH (06:48)
[2022-10-03] MEDS: SODIUM CHLORIDE 0.9% 1,000 ML IV SCH ×2 (07:36→07:59)
[2022-10-03 07:58] VITALS: BP 137/67; PULSE 79; RESP 16
[2022-10-03] MEDS: amLODIPine 10 MG TAB PO SCH (07:58)
[2022-10-03] MEDS: THIAMINE 100 MG TAB PO SCH (07:59)
[2022-10-03] MEDS: CITALOPRAM HYDROBROMIDE 20 MG TAB PO SCH (07:59)
[2022-10-03] MEDS: LOSARTAN 50 MG TAB PO SCH (07:59)
[2022-10-03] MEDS: PANTOPRAZOLE 40 MG/10 ML VIAL IV SCH (07:59)
[2022-10-03] MEDS: METOPROLOL SUCCINATE (ER) 100 MG TAB.ER.24H PO SCH (07:59)
[2022-10-03 08:38] LABS: Basophils % (A) 0 %; Eosinophils # (A) 0.6 k/uL (0-0.7); Eosinophils % (A) 8 %; HCT 27.4 % (39.0-53.0); HGB 9.2 gm/dL (13.0-17.5); Lymphocytes % (A) 15 %; MCH 34.7 pg (25.0-35.0); MCHC 33.4 g/dL (31.0-37.0); Macrocytosis Slight; Mean Platelet Volume 8.3; Monocytes # (A) 0.5 k/uL (0-1.0); Monocytes % (A) 6 %; Neutrophils % (A) 70 %; Platelet Count 173 k/uL (150-450); RBC 2.64 m/uL (4.30-5.90); RDW 14.2 % (11.5-15.5); WBC 7.2 k/uL (3.8-10.6)
[2022-10-03 08:47] LABS: African American GFR (CKD) 62 (>60 ml/min/1.73 sqM); Anion Gap 7 mmol/L; Blood Urea Nitrogen 16 mg/dL (9-20); Calcium 8.7 mg/dL (8.4-10.2); Carbon Dioxide 22 mmol/L (22-30); Chloride 105 mmol/L (98-107); Glucose 108 mg/dL (74-99); Non-African American GFR(CKD) 54 (>60 ml/min/1.73 sqM); Potassium 3.8 mmol/L (3.5-5.1); Sodium 134 mmol/L (137-145)
--- NOTE | 2022-10-03 10:05 | P.DS ---
Providers Date of admission: 10/01/22 03:28 Expected date of discharge: 10/03/22 Attending physician: Noel Riojas MD Consults: 10/01/22 03:28 Consult Physician Urgent Consulting Provider: Jeyson Powers Reason/Comments: fall, multiple rib fracture Do you want consulting provider notified?: Already Contacted Primary care physician: Cristela Beulah [facility] Course: Final Diagnoses: Multiple falls, multiple rib fractures-Left posterior lateral eighth through 11th rib fractures. PT evaluation pending. GI bleed.status post EGD, reporting multiple superficial duodenal ulcers without any evidence of active bleeding. Duodenitis versus peptic ulcer versus trauma of the proximal duodenum noted on CT Recent left carotid endarterectomy CAD, history of CABG and stents Hypertension Hyperlipidemia Seizure disorder Gastroesophageal reflux disease Hospital course:This is a pleasant 82-year-old gentleman transferred from [facility] secondary to multiple recent falls sustaining left rib fractures and GI bleed in a patient with past medical history significant for skin cancer, gastroesophageal reflux disease, hypertension, hyperlipidemia, CAD status post CABG and stents,Seizure disorder, recent left carotid endarterectomy 07/18/2022- discharged on Plavix and aspirin. Reports yesterday was his third fall, passed out, unresponsive, called EMS and patient was transported to the hospital. While at [facility] patient began having multiple bloody bowel movements and patient was transferred to [facility] for GI and trauma evaluation/tx. Complains of left rib pain. Denies abdominal pain. Denies chest pain, palpitations. [facility] evaluation/radiology studies as per ER review ,stating brain CT reported no evidence of acute transcortical infarctions recent intracranial hemorrhage or hydrocephalus, chest CT demonstrated dependent left lower lobe atelectasis and trace effusion. Age indeterminate nondisplaced left anterior fourth through eighth rib deformities possibly acute.CT of the abdomen and pelvis and inserted additional left posterior lateral eighth through 11th ribs. Duodenitis versus peptic ulcer versus trauma of the proximal duodenum. CT of the cervical spine did not demonstrate any acute cervical fractures. Hemoglobin 10.8, platelets 131, BMP pending. Maintaining O2 sats in the 90s on room air. 10/02/2022 completed EGD reporting antral erosive gastritis with multiple superficial duodenal ulcers 1-2 cm, no active bleeding. Aspirin and Plavix to remain on hold for a couple more days. Continues on PPI. Denies bowel movement today. No further bleeding reported. Denies nausea vomiting or abdominal pain. Hemoglobin 9.5, platelets 157 . Renal function improving, BUN 22, creatinine 1.23 .Afebrile, WBC has normalized. Maintaining O2 sats in the mid to high 90s on room air. Significant clinical improvement. Chest x-ray suggestive of atelectasis. Maintain aggressive pulmonary toileting-patient has been advised to continue using his incentive spirometer every hour 10 while awake over the next few weeks at home. Have received clearance from GI to resume patient's aspirin and Plavix starting tomorrow. Patient will be discharged on Protonix BID and Carafate before meals and at bedtime. Afebrile, normal WBC. Renal function continues improving, BUN 16, creatinine 1.25. Hemoglobin stable at 9.2 with platelets 173. Denies chest pain, palpitations or shortness of breath. Maintaining O2 sats in the high 90s on room air. Negative for orthostatic hypotension ,blood pressure controlled. Cleared by GI for discharge. Patient will be discharged home today in a stable condition with guarded prognosis pending PT evaluation and recommendations, final DC recommendations and clearance for general surgery. The impression and plan of care has been dictated as directed. : I performed a history and examination of this patient, discussed the same with the dictator. I agree with the dictator's note ,documented as a scribe. Any additional findings or plans will be noted. Patient Condition at Discharge: Stable Plan - Discharge Summary Discharge Rx Participant: Yes New Discharge Prescriptions: New Sucralfate [Carafate] 1 gm PO ACHS #120 tablet Pantoprazole Sodium [Protonix] 40 mg PO BID #60 tab Continue Levothyroxine Sodium [Synthroid] 50 mcg PO DAILY Cholecalciferol [Vitamin D3 (25 Mcg = 1000 Iu)] 50 mcg PO DAILY Famotidine 40 mg PO DAILY Furosemide [Lasix] 20 mg PO BID Rosuvastatin Calcium 20 mg PO SUMOWEFR Vitamin B Complex/Folic Acid [Vitamin B Complex Tablet] 0.4 mg PO HS Thiamine [Vitamin B-1] 100 mg PO DAILY #30 tablet Metoprolol Succinate [Toprol XL] 100 mg PO DAILY levETIRAcetam [Keppra] 750 mg PO BID Potassium Chloride [K-Tab ER] 20 meq PO DAILY amLODIPine [Norvasc] 10 mg PO DAILY allopurinoL [Zyloprim] 100 mg PO BID Citalopram Hydrobromide [CeleXA] 40 mg PO DAILY Aspirin EC [Ecotrin Low Dose] 81 mg PO DAILY #30 traMADol HCL [Ultram] 50 mg PO Q6HR PRN PRN Reason: Pain Tamsulosin [Flomax] 0.4 mg PO DAILY #14 cap Losartan Potassium 100 mg PO DAILY Ketorolac [Toradol] 10 mg PO QID Clopidogrel [Plavix] 75 mg PO DAILY #0 Discharge Medication List Cholecalciferol [Vitamin D3 (25 Mcg = 1000 Iu)] 50 mcg PO DAILY 07/03/16 [History] Levothyroxine Sodium [Synthroid] 50 mcg PO DAILY 07/03/16 [History] Famotidine 40 mg PO DAILY 10/17/19 [History] Furosemide [Lasix] 20 mg PO BID 10/17/19 [History] Rosuvastatin Calcium 20 mg PO SUMOWEFR 10/17/19 [History] Vitamin B Complex/Folic Acid [Vitamin B Complex Tablet] 0.4 mg PO HS 10/17/19 [ History] Thiamine [Vitamin B-1] 100 mg PO DAILY #30 tablet 10/19/19 [Rx] Metoprolol Succinate [Toprol XL] 100 mg PO DAILY 06/14/20 [History] traMADol HCL [Ultram] 50 mg PO Q6HR PRN 10/23/20 [History] Potassium Chloride [K-Tab ER] 20 meq PO DAILY 07/15/22 [History] levETIRAcetam [Keppra] 750 mg PO BID 07/15/22 [History] Tamsulosin [Flomax] 0.4 mg PO DAILY #14 cap 07/19/22 [Rx] Citalopram Hydrobromide [CeleXA] 40 mg PO DAILY 10/01/22 [History] Ketorolac [Toradol] 10 mg PO QID 10/01/22 [History] Losartan Potassium 100 mg PO DAILY 10/01/22 [History] allopurinoL [Zyloprim] 100 mg PO BID 10/01/22 [History] amLODIPine [Norvasc] 10 mg PO DAILY 10/01/22 [History] Aspirin EC [Ecotrin Low Dose] 81 mg PO DAILY #30 10/03/22 [Rx] Clopidogrel [Plavix] 75 mg PO DAILY #0 10/03/22 [Rx] Pantoprazole Sodium [Protonix] 40 mg PO BID #60 tab 10/03/22 [Rx] Sucralfate [Carafate] 1 gm PO ACHS #120 tablet 10/03/22 [Rx] Follow up Appointment(s)/Referral(s): Cristela Riojas DO [Primary Care Provider] - 3 Days Steph Miranda MD [STAFF PHYSICIAN] - 2 Weeks Activity/Diet/Wound Care/Special Instructions: every hour X 10 while awake
== END 2022-10-03 13:21 | disposition home or self-care (01) | DRG 392 ==
LOC: EC 23:27 → 3SCARD 10-01 03:28
PROVIDERS: ADMIT Family Medicine; ATTEND Family Medicine
PROC: 0DB68ZX Excision of Stomach, Via Natural or Artificial Opening Endoscopic, Diagnostic (ICD-10-PCS; principal; 2022-10-01 09:30)
DX: K29.60 Other gastritis without bleeding (principal); K22.10 Ulcer of esophagus without bleeding; S22.42XA Multiple fractures of ribs, left side, initial encounter for closed fracture; K26.9 Duodenal ulcer, unspecified as acute or chronic, without hemorrhage or perforation; K21.9 Gastro-esophageal reflux disease without esophagitis; K44.9 Diaphragmatic hernia without obstruction or gangrene; I25.10 Atherosclerotic heart disease of native coronary artery without angina pectoris; I10 Essential (primary) hypertension; G40.909 Epilepsy, unspecified, not intractable, without status epilepticus; E78.5 Hyperlipidemia, unspecified; Z96.641 Presence of right artificial hip joint; R29.6 Repeated falls; W19.XXXA Unspecified fall, initial encounter; Z79.02 Long term (current) use of antithrombotics/antiplatelets; Z79.82 Long term (current) use of aspirin; Z79.890 Hormone replacement therapy; Z79.899 Other long term (current) drug therapy; Z85.828 Personal history of other malignant neoplasm of skin; Z87.19 Personal history of other diseases of the digestive system; I25.2 Old myocardial infarction; Z89.021 Acquired absence of right finger(s); Z95.1 Presence of aortocoronary bypass graft; Z95.5 Presence of coronary angioplasty implant and graft; Z88.8 Allergy status to other drugs, medicaments and biological substances; Z88.5 Allergy status to narcotic agent; Z87.891 Personal history of nicotine dependence
CPT/HCPCS: 36415; 43239; 71046; 80048; 80053; 85025; 88305; 96374; 99285

== ENCOUNTER → 2022-10-23 | Outpatient (CLI) | payer MEDICARE, OTHER ==
--- NOTE | 2022-10-25 11:07 | MR ---
EXAMINATION TYPE: MR cervical spine wo con DATE OF EXAM: 10/23/2022 INDICATION: Patient age: Male; 82 years old; Reason for study: M48.02 SPINAL STENOSIS, CERVICAL REGION; PHH. Falling often, evaluate for cervical stenosis COMPARISON: 02/21/2020. TECHNIQUE: Multi planar, multi sequence imaging was performed utilizing: T1-weighted, T2-weighted, an d turbo inversion recovery imaging of the cervical spine. IV Contrast: None FINDINGS: Alignment: The cervical vertebral bodies have preserved heights. There is grade 1 atrial to severe C3 on C4. Bones: Bone signal is within normal limits. No abnormal bone marrow edema on inversion recovery seque nces. Cord: The spinal cord is unremarkable with regards to their signal intensity and morphology. Discs: Multilevel disc desiccation is present. C2-C3: No significant disc pathology. The spinal canal is patent. Bilateral facet and uncovertebral joint arthropathy are present with mild to moderate bilateral neural foraminal stenosis. C3-C4: No significant disc pathology. The spinal canal is patent. Bilateral facet and uncovertebral joint arthropathy are present with moderate to severe bilateral neural foraminal stenosis. C4-C5: No significant disc pathology. The spinal canal is patent. Bilateral facet and uncovertebral joint arthropathy are present with mild to moderate right and moderate left bilateral neural foramina l stenosis. C5-C6: A disc osteophyte complex is present with moderate spinal canal stenosis. Bilateral facet and uncovertebral joint arthropathy are present with moderate to severe bilateral neural foraminal steno sis. C6-C7: A disc osteophyte complex is present with mild spinal canal stenosis. Bilateral facet and unc overtebral joint arthropathy are present with moderate bilateral neural foraminal stenosis. C7-T1: No significant disc pathology. The spinal canal is patent. No neural foraminal stenosis. Other: None. IMPRESSION: Overall findings may be mildly progressed from 2019. 1. No evidence for disc herniation. Spinal canal stenosis worse at C5-C6 with moderate stenosis. 2. Multilevel disc degeneration with associated osteoarthritic changes multilevel neural foraminal st enosis as described above.
== END | disposition home or self-care (01) ==
LOC: RADMRIMAIN 15:45
PROVIDERS: ATTEND Family Medicine
DX: M48.02 Spinal stenosis, cervical region (principal); M47.812 Spondylosis without myelopathy or radiculopathy, cervical region; M99.71 Connective tissue and disc stenosis of intervertebral foramina of cervical region; M50.322 Other cervical disc degeneration at C5-C6 level
CPT/HCPCS: 72141

== ENCOUNTER → 2023-09-16 | Outpatient (CLI) | payer MEDICARE, OTHER | END | disposition home or self-care (01) | LOC: RADNMMAIN 08:26 | PROVIDERS: ATTEND Family Medicine | DX: Z53.9 Procedure and treatment not carried out, unspecified reason (principal) ==

== ENCOUNTER → 2023-09-28 | Outpatient (CLI) | payer MEDICARE, OTHER ==
[~2023-09-28] MED LIST changes: -LACTATED RINGERS 1,000 ML IV SCH; +REGADENOSON 0.4 MG/5 ML SYRINGE IV PRN
--- NOTE | 2023-09-28 18:40 | CA ---
Lexiscan Nuclear Stress Test Report Name: Anoop Mart Exam Date: 09/28/2023 11:14 Exam Location: [place] Stress Ht (in): 71 Wt (lb): 207 BSA: 2.14 Ordering Phys: Cristela Riojas DO Referring Phys: KATHLEEN Technologist: SAVANNAH Age: 83 Gender: M : 1940 Procedure CPT: Indications: I51.7 CARDIOMEGALY I51.89 OTHER ILL-DEFINED HEART ICD-10 Codes: Patient History: Hypertension, history of ASCAD and pre-op. Medications: Meds past 24 hrs: Pretest Chest Pain: STRESS TEST Lexiscan Protocol Exercise Duration (min:sec): 02:[address] Depressions (mm): Angina Score: Coleman Score: Resting HR (bpm): 69 Peak HR (bpm): 81 Resting BP (mmHg): 149 / 71 Peak BP (mmHg): 149 / 68 MPHR: 137 Target HR: 116 % MPHR: 59 METS: 1.0 Total Dose: Peak Dose: Atropine: Double Product: 08798 BP Response: Stress Termination: Infusion complete Stress Symptoms: No chest pain or symptoms Stress Summary: ECG ANALYSIS Resting ECG: Stress ECG: CONCLUSIONS Diagnosis: Cardiomegaly and shortness of breath on exertion, preop assessment Abnormal EKG with T wave inversions in the precordial leads at baseline Result No new EKG abnormalities No ECG evidence for ischemia Normal heart rate and blood pressure response Nuclear portion will be reported separately Dr. Aurelio Chambers MD (Electronically Signed) Final Date: 28 September 2023 18:39
--- NOTE | 2023-09-29 07:37 | NM ---
EXAMINATION TYPE: NM stress lexiscan cardiolite DATE OF EXAM: 09/28/2023 COMPARISON: NONE CLINICAL INDICATION: Male, 83 years old with history of I51.7 CARDIOMEGALY I51.89 OTHER ILL-DEFINED H EART; TECHNIQUE: After the intravenous administration of 10.8 mCi Tc 99m Sestamibi - Cardiolite resting SP ECT images acquired 45 minutes post injection. The patient received 0.4mg Lexiscan, 24.0 mCi Tc 99m Sestamibi - Stress images obtained [address] injection FINDINGS: Review of stress and rest SPECT images demonstrates no distinct perfusion abnormality. Gated analysi s shows normal wall motion with an estimated left ventricular ejection fraction of 69 %. IMPRESSION: No scintigraphic evidence for reversible ischemia.
== END | disposition home or self-care (01) ==
LOC: RADNMMAIN 07:35
PROVIDERS: ATTEND Family Medicine
DX: Z01.818 Encounter for other preprocedural examination (principal); I11.9 Hypertensive heart disease without heart failure; R94.31 Abnormal electrocardiogram [ECG] [EKG]
CPT/HCPCS: 93017; 78452; A9500; J2785